=== PATIENT | female | born 1955 | race Caucasian/White ===

== ENCOUNTER 2017-08-04 11:44 | Emergency (ER) | payer BC ==
[2017-08-04] MEDS: Sodium Chloride 0.9% 1,000 ML IV SCH (12:14)
[2017-08-04] MEDS: levETIRAcetam 500 MG in Sodium Chloride 0.9% 100 ML IV ONE (12:28)
[2017-08-04] MEDS: cefTRIAXone 1,000 MG VIAL IVPUSH ONE (13:17)
[2017-08-04] MEDS: Sodium Chloride 0.9% 1,000 ML IV ONE (14:00)
--- NOTE | 2017-08-04 15:14 | CT ---
INDICATION: Weakness, CVA history, now seizures. CT HEAD WITHOUT CONTRAST: Serial contiguous 2.5 and 5 mm sections were obtained through the brain without contrast and had to be repeated for a total of 6 times due to seizures - motion artifact. Total exam DLP = 2,850.94 mGy-cm. Exam revealed similar appearance of a few opacified ethmoidal air cells of questionable significance, possibly relating to sinusitis in that area or retention cysts. There is some thickening of the lining of the posteromedial aspect of the wall lining of the right sphenoidal air cell. This could represent sinusitis in that area, as there is some frothiness to that apparent fluid and/or thickening. The mastoid air cells appear fairly well-aerated. Evidence of previous surgery is noted in the right temporal area with bone flap and metallic retention device. There is minimal calcification in the internal carotid arteries. Encephalomalacia is noted in the temporal lobe on the right and appears similar to the previous examination with suggestion of some progressive abnormal decreased density in the frontoparietal white matter on the right, compared with the previous study. This appearance may be either new or secondary to progression at the time of the previous incident - comparison study is 2016. Other previous study from 11/05/2014 also did not show this new area of decreased density in the frontal and parietal white matter periventricular. There is prominence of the right lateral ventricle, which is only minimally increased compared with the previous study of 2016, significantly increased compared with 2014, however. The midline is showing no shift. The ventricles are prominent, as previously noted, especially the right lateral ventricle. Orbits appear to be intact. IMPRESSION: 1. Encephalomalacia right temporoparietal area extending into the white matter but with new area of decreased density in the white matter compared with 2017, extending parietal and into the frontal area. This could represent an acute process. However, no bleeding site or hematoma was seen. 2. Postsurgical changes right frontoparietal with encephalomalacia and prominence of the right lateral ventricle. Report was called to Dr. Andrade at 1209 hours on 08/04/2017. [facility]ITAL[facility]
--- NOTE | 2017-08-04 15:17 | CR ---
INDICATION: Unresponsive. CHEST: A single AP upright view of the chest was obtained 08/04/2017 with an additional view to attempt better inspiration. Poor inspiration compared with 03/27/2011 examination is noted, emphasizing basilar markings without a definite active infiltrate or effusion. No definite evidence of CHF, cardiomegaly, or pneumothorax is identified. Tubing is noted overlying the left clavicle. Overlying EKG leads are also noted. IMPRESSION: No acute process, allowing for poor inspiration. MTDD
--- NOTE | 2017-08-04 15:19 | EDM.PDOC ---
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 , walks with a walker here, pt felt okay yesterday, did not feel this AM and did not eat much , had dysuria and he scheduled at appointment at the clinic at 4:30 PM today to evaluate at 10:00 pt seemed to be at baseline, ambulating, at 11:00 AM returned home and pt had slid forward in her chair and was unresponsive EMS called, 30 second seizures witnessed by EMS, no meds given pt given 500 mg Keppra IV here, no additional szs activity was staring with nonpurposeful movement of the R side did appear dry, IVF fluids given, lactic 6.3 and SG 1.030 with no ketones, dysuria likely d/t concentrated urine after 2 liters IVF pt was speaking, alert, BOB and back to baseline as per trop 0.088 initial, repeat pending initial EKG with ST 114 with PRWP and late transition repeat EKG pending HR 122 and regular on arrival, ST, decreased to <100 after 2 liters IVF - Related Data Allergies Allergy/AdvReac Type Severity Reaction Status Date / Time adhesive Allergy Mild Itching Verified 08/04/17 11:51 iopamidol Allergy Mild Difficulty Verified 08/04/17 11:51 Breathing aspirin Allergy Bleeding Verified 08/04/17 11:51 povidone-iodine Allergy Rash Verified 08/04/17 11:51 [From Betadine] soap [From Betadine] Allergy Rash Verified 08/04/17 11:51 zolmitriptan [From Zomig] Allergy Vomiting Verified 08/04/17 11:51 Home Meds: Home Meds Multivitamins/Minerals [Vitamins and Minerals] 1 tab PO DAILY #40 tablet [Rx] atorvaSTATin [Lipitor] 40 mg PO BEDTIME #40 tab 05/29/14 [Rx] Calcium Carbonate [Tums] 500 mg PO QID PRN 09/14/14 [History] Cholecalciferol (Vitamin D3) [Vitamin D3] 2,000 unit PO DAILY 09/14/14 [History] FLUoxetine [PROzac] 60 mg PO DAILY 09/14/14 [History] Calcium Carbonate/Vitamin D3 [Calcium 500-Vit D3 200 Tablet] 1 tab PO BIDMEALS 03/14/15 [History] Omeprazole 40 mg PO DAILY 03/14/15 [History] Ondansetron [Zofran ODT] 4 mg PO Q4H PRN 03/14/15 [History] Gabapentin [Neurontin] 900 mg PO TID 08/29/15 [History] traMADol [Ultram] 50 mg PO QID PRN 08/29/15 [History] Docusate Sodium 100 mg PO DAILY 08/04/17 [History] Lactulose 30 ml PO BID PRN 08/04/17 [History] Meclizine [Antivert] 25 mg PO Q4H PRN 08/04/17 [History] Metoclopramide [Reglan] 5 mg PO Q8H PRN 08/04/17 [History] Sucralfate [Carafate] 1 gm PO QID PRN 08/04/17 [History] carBAMazepine [Carbamazepine] 100 mg PO BID 08/04/17 [History] Past Medical History HEENT History: Reports: Head Other HEENT History: mechanical thrombectomy for stroke, stroke, brain edema to right temporal occipital area. 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 Drained in [place] Psychiatric History: Reports: Anxiety, Depression, Panic Attack Hematologic History: Reports: Blood Transfusion(s) Immunologic History: Reports: None Oncologic (Cancer) History: Reports: None Other Dermatologic History: NON HEALING ABD WOUND - Infectious Disease History Infectious Disease History: Reports: C-Difficile, Chicken Pox, Measles, Mumps - Past Surgical History Head Surgeries/Procedures: Reports: Craniotomy GI Surgical History: Reports: Appendectomy, Colonoscopy Female Surgical History: Reports: D&C, Hysterectomy, Oophorectomy Endocrine Surgical History: Reports: None Musculoskeletal Surgical History: Reports: Knee Replacement Oncologic Surgical History: Reports: None Dermatological Surgical History: Reports: Skin Graft Social & Family History - Family History HEENT: Reports: Cataract, Macular Degeneration Cardiac: Reports: High Cholesterol Respiratory: Reports: None GI: Reports: Cholelithiasis : Reports: Renal Calculus OBGYN: Reports: Musculoskeletal: Reports: Arthritis, Back pain, Chronic, Osteoporosis Neurological: Reports: Migraines Psychiatric: Reports: Anxiety Endocrine/Metabolic: Reports: Diabetes, type II Hematologic: Reports: None Immunologic: Reports: None Dermatologic: Reports: None Oncologic: Reports: Leukemia, Prostate - Tobacco Use Smoking Status *Q: Current Every Day Smoker Years of Tobacco use: 35 Packs/Tins Daily: 0.2 Used Tobacco, but Quit: No - Caffeine Use Caffeine Use: Reports: None - Recreational Drug Use Recreational Drug Use: No - Living Situation & Occupation Living situation: Reports: Occupation: Disabled ED ROS GENERAL - Review of Systems Review Of Systems: See Below Constitutional: Reports: No Symptoms HEENT: Reports: No Symptoms Respiratory: Reports: No Symptoms Cardiovascular: Reports: No Symptoms Endocrine: Reports: No Symptoms GI/Abdominal: Reports: No Symptoms : Reports: No Symptoms Musculoskeletal: Reports: No Symptoms Skin: Reports: No Symptoms Neurological: Reports: No Symptoms (unresponsive), Trouble Speaking, Weakness, Change in Speech, Other (slight PRYOR) Psychiatric: Reports: No Symptoms Hematologic/Lymphatic: Reports: No Symptoms Immunologic: Reports: No Symptoms ED EXAM, NEURO - Physical Exam Exam: See Below Exam Limited By: No Limitations General Appearance: WD/WN, Other (pt presented staring, conjugate, did have some movement together, 4/4 mm, equal reactive, did speak to me 1-2 word sentences, said she had a slight PRYOR) Eye Exam: Bilateral Eye: Other (EOMI after IVF) Ears: Normal External Exam, Hearing Grossly Normal Nose: Normal Inspection, Normal Mucosa, No Blood Throat/Mouth: Normal Inspection, Normal Lips, Normal Teeth, Normal Oropharynx, Normal Voice, No Airway Compromise Head Exam: Atraumatic, Normocephalic Neck: Normal Inspection, Supple, Non-Tender, Full Range of Motion Respiratory/Chest: No Respiratory Distress, Lungs Clear, Normal Breath Sounds, No Accessory Muscle Use, Chest Non-Tender Cardiovascular: Regular Rate, Rhythm, No Edema, No Gallop, No JVD, No Rub, Systolic Murmur GI/Abdominal: Normal Bowel Sounds, Soft, Non-Tender, No Distention Neurological: Other (began to move LUE/LLE after IVF, speaking in complete sentences "I want to go home", says she is feeling better, nonpurposeful movement on the R on arrival, appeared postictal) Extremities: Normal Inspection, Normal Range of Motion, Non-Tender, No Pedal Edema, Other (moderate dec'd turgor UE b/l, no tenting) Psychiatric: Normal Affect, Normal Mood Skin Exam: Warm, Dry, Intact, Normal Color, No Rash Course - Vital Signs Last Recorded V/S: Last Vital Signs Temp 36.9 C 08/04/17 11:50 Pulse 97 08/04/17 16:05 Resp 17 08/04/17 16:05 BP 115/57 L 08/04/17 16:05 Pulse Ox 97 08/04/17 16:05 - Orders/Labs/Meds Orders: Active Orders 24 hr Category Date Time Status EKG Documentation Completion [RC] ASDIRECTED Care 08/04/17 15:13 Active Insert Bonilla Catheter [Insert Urinary Catheter] [OM.PC] Care 08/04/17 12:15 Ordered Q24H Urinary Catheter Assessment [RC] QSHIFT Care 08/04/17 12:15 Active CULTURE BLOOD [BC] Urgent Lab 08/04/17 12:45 Results CULTURE BLOOD [BC] Urgent Lab 08/04/17 13:15 Received URINALYSIS W/MICROSCOPIC [UA W/MICROSCOPIC] [URIN] Stat Lab 08/04/17 13:06 Ordered Sodium Chloride 0.9% [Normal Saline] 1,000 ml Med 08/04/17 12:15 Active IV ASDIRECTED Blood Culture x2 Reflex Set [OM.PC] Urgent Oth 08/04/17 12:03 Ordered EKG 12 Lead [EK] Routine Ther 08/04/17 12:03 Ordered EKG 12 Lead [EK] Routine Ther 08/04/17 15:12 Ordered Medication Orders Sodium Chloride (Normal Saline) 1,000 mls @ 999 mls/hr IV ASDIRECTED TREVOR Last Admin: 08/04/17 12:14 Dose: 999 mls/hr Labs: Laboratory Tests 08/04/17 08/04/17 08/04/17 Range/Units 12:45 12:45 12:45 WBC 20.7 H (4.5-12.0) X10-3/uL RBC 4.67 (3.23-5.20) x10(6)uL Hgb 14.7 (11.5-15.5) g/dL Hct 44.0 (30.0-51.3) % MCV 94.2 (80-96) fL MCH 31.4 (27.7-33.6) pg MCHC 33.4 (32.2-35.4) g/dL RDW 13.1 (11.5-15.5) % Plt Count 271 (125-369) X10(3)uL MPV 9.4 (7.4-10.4) fL Add Manual Diff Yes Neutrophils % (Manual) 88 H (46-82) % Lymphocytes % (Manual) 9 L (13-37) % Monocytes % (Manual) 3 L (4-12) % Sodium 141 (135-145) mmol/L Potassium 4.0 (3.5-5.3) mmol/L Chloride 104 (100-110) mmol/L Carbon Dioxide 18 L (21-32) mmol/L BUN 20 H (7-18) mg/dL Creatinine 1.1 H (0.55-1.02) mg/dL Est Cr Clr Drug Dosing 43.87 mL/min Estimated GFR (MDRD) 50 L (>60) BUN/Creatinine Ratio 18.2 (9-20) Glucose 142 H (80-116) mg/dL Lactic Acid (0.4-2.2) mmol/L Calcium 8.5 L (8.6-10.2) mg/dL Total Bilirubin 0.1 (0.1-1.3) mg/dL AST 21 (5-25) IU/L ALT 27 (12-36) U/L Alkaline Phosphatase 116 H (56-112) IU/L Troponin I 0.088 H* (<0.017-0.056) ng/mL C-Reactive Protein 0.5 (0.5-0.9) mg/dL NT-Pro-B Natriuret Pep (<=125) pg/mL Total Protein 7.2 (6.0-8.0) g/dL Albumin 3.7 (3.2-4.6) g/dL Globulin 3.5 g/dL Albumin/Globulin Ratio 1.1 Urine Color (YELLOW) Urine Appearance (CLEAR) Urine pH (5.0-6.5) Ur Specific [place] (1.010-1.025) Urine Protein (NEGATIVE) mg/dL Urine Glucose (UA) (NEGATIVE) mg/dL Urine Ketones (NEGATIVE) mg/dL Urine Occult Blood (NEGATIVE) Urine Nitrite (NEGATIVE) Urine Bilirubin (NEGATIVE) Urine Urobilinogen (NEGATIVE) mg/dL Ur Leukocyte Esterase (NEGATIVE) Urine WBC (0) Ur Squamous Epith Cells (NS,R,O) Urine Bacteria (NS) 08/04/17 08/04/17 08/04/17 Range/Units 13:06 13:15 15:20 WBC (4.5-12.0) X10-3/uL RBC (3.23-5.20) x10(6)uL Hgb (11.5-15.5) g/dL Hct (30.0-51.3) % MCV (80-96) fL MCH (27.7-33.6) pg MCHC (32.2-35.4) g/dL RDW (11.5-15.5) % Plt Count (125-369) X10(3)uL MPV (7.4-10.4) fL Add Manual Diff Neutrophils % (Manual) (46-82) % Lymphocytes % (Manual) (13-37) % Monocytes % (Manual) (4-12) % Sodium (135-145) mmol/L Potassium (3.5-5.3) mmol/L Chloride (100-110) mmol/L Carbon Dioxide (21-32) mmol/L BUN (7-18) mg/dL Creatinine (0.55-1.02) mg/dL Est Cr Clr Drug Dosing mL/min Estimated GFR (MDRD) (>60) BUN/Creatinine Ratio (9-20) Glucose (80-116) mg/dL Lactic Acid 6.3 H* (0.4-2.2) mmol/L Calcium (8.6-10.2) mg/dL Total Bilirubin (0.1-1.3) mg/dL AST (5-25) IU/L ALT (12-36) U/L Alkaline Phosphatase (56-112) IU/L Troponin I 0.212 H* (<0.017-0.056) ng/mL C-Reactive Protein (0.5-0.9) mg/dL NT-Pro-B Natriuret Pep (<=125) pg/mL Total Protein (6.0-8.0) g/dL Albumin (3.2-4.6) g/dL Globulin g/dL Albumin/Globulin Ratio Urine Color Yellow (YELLOW) Urine Appearance Clear (CLEAR) Urine pH 5.0 (5.0-6.5) Ur Specific [place] 1.030 H (1.010-1.025) Urine Protein Negative (NEGATIVE) mg/dL Urine Glucose (UA) Normal (NEGATIVE) mg/dL Urine Ketones Negative (NEGATIVE) mg/dL Urine Occult Blood Negative (NEGATIVE) Urine Nitrite Negative (NEGATIVE) Urine Bilirubin Negative (NEGATIVE) Urine Urobilinogen Normal (NEGATIVE) mg/dL Ur Leukocyte Esterase Negative (NEGATIVE) Urine WBC 0-5 (0) Ur Squamous Epith Cells Occasional (NS,R,O) Urine Bacteria Few H (NS) 18 08/04/17 Range/Units 15:20 15:20 WBC (4.5-12.0) X10-3/uL RBC (3.23-5.20) x10(6)uL Hgb (11.5-15.5) g/dL Hct (30.0-51.3) % MCV (80-96) fL MCH (27.7-33.6) pg MCHC (32.2-35.4) g/dL RDW (11.5-15.5) % Plt Count (125-369) X10(3)uL MPV (7.4-10.4) fL Add Manual Diff Neutrophils % (Manual) (46-82) % Lymphocytes % (Manual) (13-37) % Monocytes % (Manual) (4-12) % Sodium (135-145) mmol/L Potassium (3.5-5.3) mmol/L Chloride (100-110) mmol/L Carbon Dioxide (21-32) mmol/L BUN (7-18) mg/dL Creatinine (0.55-1.02) mg/dL Est Cr Clr Drug Dosing mL/min Estimated GFR (MDRD) (>60) BUN/Creatinine Ratio (9-20) Glucose (80-116) mg/dL Lactic Acid 1.6 (0.4-2.2) mmol/L Calcium (8.6-10.2) mg/dL Total Bilirubin (0.1-1.3) mg/dL AST (5-25) IU/L ALT (12-36) U/L Alkaline Phosphatase (56-112) IU/L Troponin I (<0.017-0.056) ng/mL C-Reactive Protein (0.5-0.9) mg/dL NT-Pro-B Natriuret Pep 142 H (<=125) pg/mL Total Protein (6.0-8.0) g/dL Albumin (3.2-4.6) g/dL Globulin g/dL Albumin/Globulin Ratio Urine Color (YELLOW) Urine Appearance (CLEAR) Urine pH (5.0-6.5) Ur Specific [place] (1.010-1.025) Urine Protein (NEGATIVE) mg/dL Urine Glucose (UA) (NEGATIVE) mg/dL Urine Ketones (NEGATIVE) mg/dL Urine Occult Blood (NEGATIVE) Urine Nitrite (NEGATIVE) Urine Bilirubin (NEGATIVE) Urine Urobilinogen (NEGATIVE) mg/dL Ur Leukocyte Esterase (NEGATIVE) Urine WBC (0) Ur Squamous Epith Cells (NS,R,O) Urine Bacteria (NS) Meds: Medications Generic Name Dose Route Start Last Admin Trade Name Freq PRN Reason Stop Dose Admin Sodium Chloride 1,000 mls @ 999 mls/hr 08/04/17 12:15 08/04/17 12:14 Normal Saline IV 999 mls/hr ASDIRECTED TREVOR Administration Discontinued Medications Generic Name Dose Route Start Last Admin Trade Name Freq PRN Reason Stop Dose Admin Acetaminophen 1,000 mg 08/04/17 15:20 08/04/17 15:32 Tylenol Extra Strength PO 08/04/17 15:21 1,000 mg ONETIME ONE Administration Ceftriaxone Sodium 1,000 mg 08/04/17 12:13 08/04/17 13:17 Rocephin IVPUSH 08/04/17 12:14 1,000 mg ONETIME ONE Administration Levetiracetam 500 mg/ Sodium 105 mls @ 400 mls/hr 08/04/17 12:12 08/04/17 12: 28 Chloride IV 08/04/17 12:26 400 mls/hr ONETIME ONE Administration Sodium Chloride 1,000 mls @ 999 mls/hr 08/04/17 13:56 08/04/17 14:00 Normal Saline IV 08/04/17 14:56 999 mls/hr .BOLUS ONE Administration - Re-Assessments/Exams Free Text/Narrative Re-Assessment/Exam: 08/04/17 16:14 pt stabilized, requested transfer to [facility] as required by his insurance, he would have to pay the 1st 15k if pt admitted here pt feeling much better, back to baseline, talking, BOB, saying she wants to go home but agrees to be admitted CxR, 1 view, with poor inspiration, no infiltrate as per radiology head CT without, old R MCA stroke, no acute changes EKG with ST 114 initial, repeat SR [address] change at V2 & V3, appears to be developing new T wave in V@ altho could be lead placement, has 0.[address] depression in V2 & V3, new stickers were placed on chest for 2nd EKG trop 0.088 with repeat 0.2, possibly CV stress altho pt may have a L main or LAD lesion to account for ST changes, no prior h/o TN pt had been on warfarin for DVT after knee surgery, not on warfarin however when she had her hemorrhagic CVA 3y ago lactic acid 6.3 initial now corrected to 1.7 WBC 20.7 and may be stress related, no clinical evidence of infection (u/a and CxR neg) nevertheless, BC x 2 pending and pt given ceftriaxone 1 gm IV pt with known new onset seizure witnessed by EMS and likely had another unwitnessed seizure at home, was postictal on arrival here seizure seemed precipitated by prior CVA and dehydration likely has had a small TN as a secondary event after the seizure altho pt may have a primary cardiac event called placed to [facility], waiting call back to complete transfer Free Text/Narrative Re-Assessment/Exam: 08/04/17 16:[address] Sexton in transfer, Dr Dick remembers the pt from taking care of her when she had her CVA previously Departure - Departure Time of Disposition: 16:33 Disposition: DC/Tfer to Acute Hospital 02 Condition: Good Clinical Impression: New onset seizure, Postictal state, Moderate dehydration, Lactic acidosis, Elevated troponin level, NSTEMI (non-ST elevated myocardial infarction), Anterior wall myocardial infarction, Acute prerenal azotemia, Leukocytosis - Discharge Information Referrals: Oriana Webb PA [Primary Care Provider] - Forms: ED Department Discharge - My Orders Last 24 Hours: My Active Orders 08/04/17 12:03 Blood Culture x2 Reflex Set [OM.PC] Urgent EKG 12 Lead [EK] Routine 08/04/17 12:15 Insert Bonilla Catheter [Insert Urinary Catheter] [OM.PC] Q24H Urinary Catheter Assessment [RC] QSHIFT Sodium Chloride 0.9% [Normal Saline] 1,000 ml IV ASDIRECTED 08/04/17 12:45 CULTURE BLOOD [BC] Urgent 08/04/17 13:06 URINALYSIS W/MICROSCOPIC [UA W/MICROSCOPIC] [URIN] Stat 08/04/17 13:15 CULTURE BLOOD [BC] Urgent 08/04/17 15:12 EKG 12 Lead [EK] Routine 08/04/17 15:13 EKG Documentation Completion [RC] ASDIRECTED - Assessment/Plan Last 24 Hours: My Active Orders 08/04/17 12:03 Blood Culture x2 Reflex Set [OM.PC] Urgent EKG 12 Lead [EK] Routine 08/04/17 12:15 Insert Bonilla Catheter [Insert Urinary Catheter] [OM.PC] Q24H Urinary Catheter Assessment [RC] QSHIFT Sodium Chloride 0.9% [Normal Saline] 1,000 ml IV ASDIRECTED 08/04/17 12:45 CULTURE BLOOD [BC] Urgent 08/04/17 13:06 URINALYSIS W/MICROSCOPIC [UA W/MICROSCOPIC] [URIN] Stat 08/04/17 13:15 CULTURE BLOOD [BC] Urgent 08/04/17 15:12 EKG 12 Lead [EK] Routine 08/04/17 15:13 EKG Documentation Completion [RC] ASDIRECTED
[2017-08-04] MEDS: Acetaminophen 500 MG Tab PO ONE (15:32)
[2017-08-04 18:02] VITALS: BP 118/62
== END 2017-08-04 17:50 ==
LOC: FB.ED 11:44
DX: I21.4 Non-ST elevation (NSTEMI) myocardial infarction (principal); R56.9 Unspecified convulsions; D72.829 Elevated white blood cell count, unspecified; E86.0 Dehydration; E87.2 Acidosis; R79.89 Other specified abnormal findings of blood chemistry; K21.9 Gastro-esophageal reflux disease without esophagitis; E78.00 Pure hypercholesterolemia, unspecified; F17.210 Nicotine dependence, cigarettes, uncomplicated; Z88.8 Allergy status to other drugs, medicaments and biological substances; Z88.6 Allergy status to analgesic agent; Z91.048 Other nonmedicinal substance allergy status; Z79.899 Other long term (current) drug therapy
CPT/HCPCS: 36415; 51702; 70450; 71045; 80053; 81001; 83605; 83880; 84484; 85025; 86140; 87040; 93005; 96361; 96365; 96375; 99285; A9270-GY; J0696; J1953; J7030

== ENCOUNTER 2020-03-08 08:58 | Emergency (ER) | payer BC ==
--- NOTE | 2020-03-08 09:20 | EDM.PDOC ---
ED HPI GENERAL MEDICAL PROBLEM - General Stated Complaint: CHEST PAIN Time Seen by Provider: 03/08/20 09:12 Source of Information: Reports: Patient History Limitations: Reports: No Limitations - History of Present Illness INITIAL COMMENTS - FREE TEXT/NARRATIVE: 64-year-old female who reports onset of burning in her central chest beginning about 8 AM while she was sitting and watching TV. It did not radiate to her arm or back but she did report that it felt like there was some burning into her throat at times. There is no nausea or vomiting. There was diaphoresis associated with this. She has taken Tagamet and Gaviscon without any relief of her symptoms. She reports that the pain is about a 7/10 at present. It was a little worse earlier. Nothing really seems to have brought the discomfort on. Ilana landeros has not had discomfort like this before. She states that she felt well yesterday. No difficulty breathing. No fevers or chills. No cough. No sore throat. There are no other associated signs or symptoms. There are no other modifying factors. Onset: Today (8 AM) Duration: Constant, Improving Location: Reports: Chest Quality: Reports: Burning Severity: Moderate Improves with: Reports: None Worsens with: Reports: None Context: Reports: Other (Nothing.) Associated Symptoms: Reports: No Other Symptoms (Except as above.) Treatments GRAIN INSPECTOR: Reports: Other Medication(s) (Tagamet and Gaviscon) Epigastric region Pain Score (Numeric/FACES): 7 - Related Data Allergies Allergy/AdvReac Type Severity Reaction Status Date / Time adhesive Allergy Mild Itching Verified 08/04/17 11:51 iopamidol Allergy Mild Difficulty Verified 08/04/17 11:51 Breathing aspirin Allergy Bleeding Verified 08/04/17 11:51 povidone-iodine Allergy Rash Verified 08/04/17 11:51 [From Betadine] soap [From Betadine] Allergy Rash Verified 08/04/17 11:51 zolmitriptan [From Zomig] Allergy Vomiting Verified 08/04/17 11:51 Home Meds: Home Meds Multivitamins/Minerals [Vitamins and Minerals] 1 tab PO DAILY #40 tablet 05/29/14 [Rx] atorvaSTATin [Lipitor] 40 mg PO BEDTIME #40 tab 05/29/14 [Rx] Calcium Carbonate [Tums] 500 mg PO QID PRN 09/14/14 [History] Cholecalciferol (Vitamin D3) [Vitamin D3] 2,000 unit PO DAILY 09/14/14 [History] FLUoxetine [PROzac] 60 mg PO DAILY 09/14/14 [History] Calcium Carbonate/Vitamin D3 [Calcium 500-Vit D3 200 Tablet] 1 tab PO BIDMEALS 03/14/15 [History] Omeprazole 40 mg PO DAILY 03/14/15 [History] Ondansetron [Zofran ODT] 4 mg PO Q4H PRN 03/14/15 [History] Gabapentin [Neurontin] 900 mg PO TID 08/29/15 [History] traMADol [Ultram] 50 mg PO QID PRN 08/29/15 [History] Docusate Sodium 100 mg PO DAILY 08/04/17 [History] Lactulose 30 ml PO BID PRN 08/04/17 [History] Meclizine [Antivert] 25 mg PO Q4H PRN 08/04/17 [History] Metoclopramide [Reglan] 5 mg PO Q8H PRN 08/04/17 [History] Sucralfate [Carafate] 1 gm PO QID PRN 08/04/17 [History] carBAMazepine [Carbamazepine] 100 mg PO BID 08/04/17 [History] Past Medical History Cardiovascular History: Reports: Blood Clots/VTE/DVT, High Cholesterol Respiratory History: Reports: Intubation, Previous Other Respiratory History: filters on each lung for blood clots pt reports Gastrointestinal History: Reports: Diverticulosis, GERD, Hemorrhoids, Irritable Bowel Syndrome, Other (See Below) (Microscopic colitis) Musculoskeletal History: Reports: Back Pain, Chronic, Neck Pain, Chronic Other Musculoskeletal History: Weakness Neurological History: Reports: CVA, Headaches, Chronic, Migraines, Vertigo Other Neuro History: bleeding in brain back in June. Drained in [facility] Psychiatric History: Reports: Anxiety, Depression, Panic Attack Hematologic History: Reports: Blood Transfusion(s) - Infectious Disease History Infectious Disease History: Reports: C-Difficile, Chicken Pox, Measles, Mumps - Past Surgical History Head Surgeries/Procedures: Reports: Craniotomy GI Surgical History: Reports: Appendectomy, Colonoscopy Female Surgical History: Reports: D&C, Hysterectomy, Oophorectomy Musculoskeletal Surgical History: Reports: Knee Replacement Dermatological Surgical History: Reports: Skin Graft Social & Family History - Family History HEENT: Reports: Cataract, Macular Degeneration Cardiac: Reports: High Cholesterol Respiratory: Reports: None GI: Reports: Cholelithiasis : Reports: Renal Calculus OBGYN: Reports: Musculoskeletal: Reports: Arthritis, Back pain, Chronic, Osteoporosis Neurological: Reports: Migraines Psychiatric: Reports: Anxiety Endocrine/Metabolic: Reports: Diabetes, type II Hematologic: Reports: None Immunologic: Reports: None Dermatologic: Reports: None Oncologic: Reports: Leukemia, Prostate - Tobacco Use Tobacco Use Status *Q: Former Tobacco User (Quit in September 2018) - Caffeine Use Caffeine Use: Reports: None - Alcohol Use Alcohol Use History: No - Living Situation & Occupation Living situation: Reports: Occupation: Disabled ED ROS GENERAL - Review of Systems Review Of Systems: See Below Constitutional: Reports: No Symptoms HEENT: Reports: No Symptoms Respiratory: Reports: No Symptoms Cardiovascular: Reports: Chest Pain Endocrine: Reports: No Symptoms GI/Abdominal: Reports: No Symptoms : Reports: No Symptoms Musculoskeletal: Reports: No Symptoms Skin: Reports: Diaphoresis (Associated with this episode this morning but has resolved now.) Neurological: Reports: No Symptoms Psychiatric: Reports: No Symptoms Hematologic/Lymphatic: Reports: No Symptoms Immunologic: Reports: No Symptoms ED EXAM, GENERAL - Physical Exam Exam: See Below Exam Limited By: No Limitations General Appearance: Alert, WD/WN, No Apparent Distress Eye Exam: Bilateral Eye: EOMI, Normal Inspection, PERRL Ears: Normal External Exam, Hearing Grossly Normal Ear Exam: Bilateral Ear: Auricle Normal Nose: Normal Inspection, Normal Mucosa, No Blood Throat/Mouth: Normal Inspection, Normal Oropharynx, Normal Voice, No Airway Compromise Head: Atraumatic, Normocephalic Neck: Normal Inspection, Supple, Non-Tender, Full Range of Motion Respiratory/Chest: No Respiratory Distress, Lungs Clear, Normal Breath Sounds, No Accessory Muscle Use, Chest Non-Tender Cardiovascular: Normal Peripheral Pulses, Regular Rate, Rhythm, No Murmur Peripheral Pulses: 2+: Radial (L), Radial (R) GI/Abdominal: Normal Bowel Sounds, Soft Back Exam: Normal Inspection, Full Range of Motion Extremities: Normal Inspection, Normal Range of Motion, Non-Tender, No Pedal Edema, Normal Capillary Refill Neurological: Alert, Oriented, CN II-XII Intact, Other (Left-sided weakness and she is chronic.) Psychiatric: Flat Affect Skin Exam: Warm, Dry, Intact, Normal Color, No Rash #1 Interpretation EKG Date: 03/08/20 Time: 09:01 Rhythm: NSR Rate (Beats/Min): 88 [place]: LAD-Left [place] Deviation P-Wave: Present QRS: Normal ST-T: Depressed (And inverted in V1 through V3.) QT: Normal Comparison: No Change (From an EKG performed on 08/04/2017.) #2 Interpretation EKG Date: 03/08/20 Time: 11:21 Rhythm: NSR Rate (Beats/Min): 85 [place]: LAD-Left [place] Deviation P-Wave: Present QRS: Normal ST-T: Depressed (V1 through V3) QT: Normal Comparison: No Change (No change from EKG performed earlier today at 9 AM.) Course - Vital Signs Last Recorded V/S: Last Vital Signs Temp 36.4 C 03/08/20 08:58 Pulse 88 03/08/20 08:58 Resp 20 03/08/20 08:58 BP 135/54 L 03/08/20 11:45 Pulse Ox 95 03/08/20 08:58 - Orders/Labs/Meds Orders: Active Orders 24 hr Category Date Time Status EKG Documentation Completion [RC] ASDIRECTED Care 03/08/20 09:38 Active EKG Documentation Completion [RC] ASDIRECTED Care 03/08/20 11:11 Active Nitroglycerin [Nitrostat] Med 03/08/20 09:38 Active 0.4 mg SL Q5M PRN Sodium Chloride 0.9% [Normal Saline] 1,000 ml Med 03/08/20 10:15 Active IV ASDIRECTED Sodium Chloride 0.9% [Saline Flush] Med 03/08/20 09:37 Active 10 ml FLUSH ASDIRECTED PRN Peripheral IV Insertion Adult [OM.PC] Routine Oth 03/08/20 09:37 Ordered EKG 12 Lead [EK] Routine Ther 03/08/20 09:37 Ordered EKG 12 Lead [EK] Routine Ther 03/08/20 11:10 Ordered Medication Orders Sodium Chloride (Normal Saline) 1,000 mls @ 100 mls/hr IV ASDIRECTED TREVOR Last Admin: 03/08/20 10:50 Dose: 100 mls/hr Documented by: MOELWEN Nitroglycerin (Nitrostat) 0.4 mg SL Q5M PRN PRN Reason: Chest Pain Last Admin: 03/08/20 11:45 Dose: 0.4 mg Documented by: CAROL Sodium Chloride (Saline Flush) 10 ml FLUSH ASDIRECTED PRN PRN Reason: Keep Vein Open Last Admin: 03/08/20 10:50 Dose: 10 ml Documented by: CAROL Labs: Laboratory Tests 03/08/20 03/08/20 03/08/20 Range/Units 09:05 09:05 09:05 WBC 7.6 (3.0-10.3) x10-3/uL RBC 4.64 (3.60-5.20) x10(6)uL Hgb 13.9 (11.4-15.5) g/dL Hct 42.1 (34.2-48.2) % MCV 90.8 (76.7-100.5) fL MCH 30.1 (23.9-33.9) pg MCHC 33.1 (31.9-34.8) g/dL RDW 14.1 (12.3-16.5) % Plt Count 307 (151-488) x10(3)uL MPV 9.3 (7.1-12.4) fL Neut % (Auto) 67.2 (30.8-76.2) % Lymph % (Auto) 19.2 (18.4-52.1) % [place] % (Auto) 10.2 (4.4-15.7) % Eos % (Auto) 2.8 (0.6-8.1) % Baso % (Auto) 0.6 (0.2-1.5) % Neut # (Auto) 5.1 (1.5-6.3) x10-3/uL Lymph # (Auto) 1.5 (1.0-4.4) x10-3/uL [place] # (Auto) 0.8 (0.3-1.0) x10-3/uL Eos # (Auto) 0.2 (0.0-0.8) x10-3/uL Baso # (Auto) 0.0 (0.0-0.1) x10-3/uL PT 10.2 (9.0-11.1) sec INR 0.94 L (1.00-1.24) APTT 22.6 L (24.4-33.2) SECONDS D-Dimer, Quantitative (0.0-0.59) mg/LFEU Sodium 140 (135-145) mmol/L Potassium 4.0 (3.5-5.3) mmol/L Chloride 102 (100-110) mmol/L Carbon Dioxide 25 (21-32) mmol/L BUN 16 (7-18) mg/dL Creatinine 0.8 (0.55-1.02) mg/dL Est Cr Clr Drug Dosing TNP Estimated GFR (MDRD) > 60 (>60) BUN/Creatinine Ratio 20.0 (9-20) Glucose 91 (80-116) mg/dL Calcium 8.7 (8.6-10.2) mg/dL Magnesium 1.9 (1.8-2.5) mg/dL Total Bilirubin 0.2 (0.1-1.3) mg/dL AST 14 D (5-25) IU/L ALT 20 D (12-36) U/L Alkaline Phosphatase 164 H (56-112) IU/L Troponin I (4.0-60.3) pg/mL Total Protein 7.2 (6.0-8.0) g/dL Albumin 3.6 (3.2-4.6) g/dL Globulin 3.6 g/dL Albumin/Globulin Ratio 1.0 Carbamazepine 11.0 (<0.5) ug/mL 03/08/20 03/08/20 03/08/20 Range/Units 09:05 09:05 11:45 WBC (3.0-10.3) x10-3/uL RBC (3.60-5.20) x10(6)uL Hgb (11.4-15.5) g/dL Hct (34.2-48.2) % MCV (76.7-100.5) fL MCH (23.9-33.9) pg MCHC (31.9-34.8) g/dL RDW (12.3-16.5) % Plt Count (151-488) x10(3)uL MPV (7.1-12.4) fL Neut % (Auto) (30.8-76.2) % Lymph % (Auto) (18.4-52.1) % [place] % (Auto) (4.4-15.7) % Eos % (Auto) (0.6-8.1) % Baso % (Auto) (0.2-1.5) % Neut # (Auto) (1.5-6.3) x10-3/uL Lymph # (Auto) (1.0-4.4) x10-3/uL [place] # (Auto) (0.3-1.0) x10-3/uL Eos # (Auto) (0.0-0.8) x10-3/uL Baso # (Auto) (0.0-0.1) x10-3/uL PT (9.0-11.1) sec INR (1.00-1.24) APTT (24.4-33.2) SECONDS D-Dimer, Quantitative 0.44 (0.0-0.59) mg/LFEU Sodium (135-145) mmol/L Potassium (3.5-5.3) mmol/L Chloride (100-110) mmol/L Carbon Dioxide (21-32) mmol/L BUN (7-18) mg/dL Creatinine (0.55-1.02) mg/dL Est Cr Clr Drug Dosing Estimated GFR (MDRD) (>60) BUN/Creatinine Ratio (9-20) Glucose (80-116) mg/dL Calcium (8.6-10.2) mg/dL Magnesium (1.8-2.5) mg/dL Total Bilirubin (0.1-1.3) mg/dL AST (5-25) IU/L ALT (12-36) U/L Alkaline Phosphatase (56-112) IU/L Troponin I < 4.0 L < 4.0 L (4.0-60.3) pg/mL Total Protein (6.0-8.0) g/dL Albumin (3.2-4.6) g/dL Globulin g/dL Albumin/Globulin Ratio Carbamazepine (<0.5) ug/mL Meds: Medications Generic Name Dose Route Start Last Admin Trade Name Freq PRN Reason Stop Dose Admin Sodium Chloride 1,000 mls @ 100 mls/hr 03/08/20 10:15 03/08/20 10:50 Normal Saline IV 100 mls/hr ASDIRECTED TREVOR Administration Nitroglycerin 0.4 mg 03/08/20 09:38 03/08/20 11:45 Nitrostat SL 0.4 mg Q5M PRN Administration Chest Pain Sodium Chloride 10 ml 03/08/20 09:37 03/08/20 10:50 Saline Flush FLUSH 10 ml ASDIRECTED PRN Administration Keep Vein Open Discontinued Medications Generic Name Dose Route Start Last Admin Trade Name Jimy PRN Reason Stop Dose Admin Ketorolac Tromethamine 30 mg 03/08/20 12:17 Toradol IVPUSH 03/08/20 12:18 ONETIME ONE Metoclopramide HCl 10 mg 03/08/20 11:11 03/08/20 11:25 Reglan IVPUSH 03/08/20 11:12 10 mg ONETIME ONE Administration - Radiology Interpretation Free Text/Narrative:: Portable chest x-ray showed no definite acute abnormality per the radiologist. - Re-Assessments/Exams Free Text/Narrative Re-Assessment/Exam: 03/08/20 11:10: The patient continues with chest pain. It was made somewhat better after the nitroglycerin. The pain was down to about a 4/10. She now has a headache after the nitroglycerin. She has no neck or jaw pain. I will plan on repeating her troponin and will also order a d-dimer. I will also repeat her EKG . In addition, I will give the patient Reglan 10 mg IV. 03/08/20 11:30: Repeat EKG was unchanged from previous. Her pain is completely gone and her chest after the Reglan. She still has the headache. Am awaiting the results for the repeat troponin and for the d-dimer. 03/08/20 12:35: The patient's repeat troponin was normal. The d-dimer was normal. She still is chest pain-free. She still has a headache. I have ordered Toradol 30 mg IV to be given as she has had this in the past her headache with good results. With the repeat troponin that was normal, repeat EKG which is completely unchanged and a negative d-dimer, I feel that MN has been ruled out and PE has been ruled out as well. Her symptoms are consistent with esophageal spasm/esophagitis/acid reflux and I am going to have the patient increase her Prilosec to 40 mg twice daily. She is to see her operations supervisor 2nd shift on 03/14/2020 and she can address these symptoms with him. I discussed all this with the patient and with her and they are in agreement with the plan for discharge. Departure - Departure Time of Disposition: 12:55 Disposition: Home, Self-Care 01 Condition: Good Clinical Impression: Esophageal spasm Chest pain Qualifiers: Chest pain type: unspecified Qualified Code(s): R07.9 - Chest pain, unspecified GERD (gastroesophageal reflux disease) Qualifiers: Esophagitis presence: esophagitis presence not specified Qualified Code(s): K21.9 - Gastro-esophageal reflux disease without esophagitis Instructions: Esophageal Spasm, Nonspecific Chest Pain, Adult, [id number], Gastroesophageal Reflux Disease, Adult, [id number] Referrals: Oriana Webb PA [Primary Care Provider] - Additional Instructions: Your blood tests were all reassuringly normal. Your EKG was not change from previous and we repeated the EKG and it again was unchanged. It did not show any evidence of a heart attack. Your blood tests were all reassuringly normal. Your blood clot screening test was negative and your repeat heart enzyme was negative as well. You appear to have related to your esophagus and possibly due to acid reflux. You need to increase your Prilosec/omeprazole to 40 mg twice daily instead of just once daily for now. Keep your follow-up appointment with the operations supervisor 2nd shift on 03/14/2020. Back to the emergency department for marked increase in pain, trouble breathing, severe weakness or any other concerning sign or symptom. Sepsis Event Note (ED) - Focused Exam Vital Signs: Vital Signs Temp Pulse Resp BP BP Pulse Ox 03/08/20 11:45 135/54 L 03/08/20 08:58 36.4 C 88 20 148/45 H 95 - My Orders Last 24 Hours: My Active Orders 03/08/20 09:37 Sodium Chloride 0.9% [Saline Flush] 10 ml FLUSH ASDIRECTED PRN Peripheral IV Insertion Adult [OM.PC] Routine EKG 12 Lead [EK] Routine 03/08/20 09:38 EKG Documentation Completion [RC] ASDIRECTED Nitroglycerin [Nitrostat] 0.4 mg SL Q5M PRN 03/08/20 10:15 Sodium Chloride 0.9% [Normal Saline] 1,000 ml IV ASDIRECTED 03/08/20 11:10 EKG 12 Lead [EK] Routine 03/08/20 11:11 EKG Documentation Completion [RC] ASDIRECTED - Assessment/Plan Last 24 Hours: My Active Orders 03/08/20 09:37 Sodium Chloride 0.9% [Saline Flush] 10 ml FLUSH ASDIRECTED PRN Peripheral IV Insertion Adult [OM.PC] Routine EKG 12 Lead [EK] Routine 03/08/20 09:38 EKG Documentation Completion [RC] ASDIRECTED Nitroglycerin [Nitrostat] 0.4 mg SL Q5M PRN 03/08/20 10:15 Sodium Chloride 0.9% [Normal Saline] 1,000 ml IV ASDIRECTED 03/08/20 11:10 EKG 12 Lead [EK] Routine 03/08/20 11:11 EKG Documentation Completion [RC] ASDIRECTED
--- NOTE | 2020-03-08 10:43 | CR ---
INDICATION: Chest pain. CHEST, ONE VIEW: Portable AP upright view of the chest was obtained 03/08/20 and compared with 08/04/17 and 03/27/11. Poor inspiration emphasizes markings. Overlying EKG leads are noted. Heart size is difficult to evaluate and may be slightly enlarged. It is emphasized by AP positioning and poor inspiration, however. Calcification is noted in the arch of the aorta. Linear densities at the mid to lower lung field on the left likely represent fibrosis - present in 2018. It could also represent recurrent linear atelectasis. A definite active infiltrate or effusion was not identified. Exogenous obesity is noted. Full inspiration PA and lateral views of the chest are recommended when clinically possible for better evaluation of heart size and lung bases. IMPRESSION: 1. No definite acute process - poor inspiration emphasizes heart and basilar markings. 2. Probable ASHD. 3. Exogenous obesity. 4. Probable fibrotic changes at the mid to lower lung field on the left. MTDD
[2020-03-08] MEDS: Sodium Chloride 0.9% 1,000 ML IV SCH (10:50)
[2020-03-08] MEDS: Sodium Chloride 0.9% 10 ML Syringe FLUSH PRN (10:50)
[2020-03-08] MEDS: Metoclopramide 10 MG/2 ML SDV IVPUSH ONE (11:25)
[2020-03-08] MEDS: Nitroglycerin 0.4 MG Tab.SL SL PRN (11:45)
[2020-03-08] MEDS: Ketorolac 30 MG/ML SDV IVPUSH ONE (12:38)
[2020-03-08 15:40] VITALS: BP 113/48
[2020-03-08 15:41] VITALS: PULSE 82
== END 2020-03-08 13:25 | disposition home or self-care (01) ==
LOC: FB.ED 08:58
DX: K21.9 Gastro-esophageal reflux disease without esophagitis (principal); K22.4 Dyskinesia of esophagus; E78.00 Pure hypercholesterolemia, unspecified; Z91.048 Other nonmedicinal substance allergy status; Z88.8 Allergy status to other drugs, medicaments and biological substances; Z88.6 Allergy status to analgesic agent; Z86.73 Personal history of transient ischemic attack (TIA), and cerebral infarction without residual deficits; Z79.899 Other long term (current) drug therapy; Z87.891 Personal history of nicotine dependence
CPT/HCPCS: 36415; 71045; 80053; 80156; 83735; 84484; 85025; 85379; 85610; 85730; 93005; 96374; 96375; 99285; A9270; J1885; J2765; J7030; 93010

== ENCOUNTER 2020-03-26 14:19 | Inpatient (IN) | payer MEDICARE, BC ==
[2020-03-26] MEDS ORDERED: Ondansetron 4 MG/2 ML SDV IVPUSH PRN (14:41)
[2020-03-26] MEDS ORDERED: Sodium Chloride 0.9% 10 ML Syringe FLUSH PRN (14:41)
[2020-03-26] MEDS: Sodium Chloride 0.9% 1,000 ML IV SCH ×2 (15:13→23:14)
[2020-03-26] MEDS: Sodium Chloride 0.9% 10 ML Syringe FLUSH PRN ×2 (15:13→15:25)
[2020-03-26] MEDS ORDERED: GALCANEZUMAB GNLM 120 MG SUBCUT SCH (15:15)
[2020-03-26] MEDS: Dicyclomine 10 MG Cap PO SCH ×2 (17:35→20:16)
[2020-03-26] MEDS ORDERED: Calcium Carbonate 500 MG Tablet PO SCH (18:00)
[2020-03-26] MEDS: traMADol 50 MG Tab PO PRN (20:16)
[2020-03-26] MEDS: carBAMazepine 100 MG Tab.Chew PO SCH (20:17)
[2020-03-26] MEDS: Atropine/Diphenoxylate 0.025-2.5 MG Tab PO SCH (20:19)
--- NOTE | 2020-03-26 22:54 | HP ---
ADMISSION DATE: 03/26/2020 CHIEF COMPLAINT: Weakness, diarrhea, dehydration. HISTORY OF PRESENT ILLNESS: Ms. Jassi Miranda is a 64-year-old woman with a complex medical history dating back to fibromyalgia and chronic pain syndrome over 20 years. 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 She was treated acutely for this in April of 2014 with tPA. It converted to a hemorrhagic stroke and she was admitted to [facility] where she had a thrombectomy. Also noted at that time was an incidental pulmonary embolus for which she had IVC filter placed. 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 She has a history of chronic abdominal pain and several admissions for medication side effects. She has chronic migraines and has had Botox injections. Back in 2014, during her multiple admissions for stroke-related symptoms, she developed C difficile diarrhea that eventually was successfully treated. Mrs. Jassi Miranda was seen in the clinic today by Dr. Tenorio for persistent diarrhea. She has had a colonoscopy that previously diagnosed ischemic colitis, and she has had intermittent persistent diarrhea since that time. She was asked to do a C difficile test on her stools, but the sample she brought in was a formed stool, not amenable to testing. She is admitted to the hospital now for IV rehydration, resumption of nutrition, and investigation of her diarrhea. PAST MEDICAL HISTORY: Also includes abdominal hysterectomy with multiple surgeries. She has had a right total knee arthroplasty with revision surgery. She has had sinus surgery. She has several admissions for medication side effects. She has chronic essential hypertension and spasticity post stroke for which she has received Botox injections. There is also recorded in her chart history of seizure disorder and history of UT, non-STEMI. Further details could not be found. MEDICATIONS: 1. Tramadol 50 to 100 mg t.i.d. p.r.n. 2. Emgality pen 1 injection monthly for migraines. 3. Reglan 5 mg t.i.d. 4. Multiple vitamin 1 daily. 5. Bentyl 10 mg q.i.d. 6. Calcium 1 b.i.d. 7. Tegretol 200 mg b.i.d. 8. Lipitor 40 mg at bedtime. 9. Fluoxetine 60 mg daily. 10.Zofran 4 mg every 4 hours p.r.n. 11.Nexium 40 mg daily. 12.Bentyl 10 to 20 mg t.i.d. p.r.n. in addition to the 10 mg q.i.d. 13.Lomotil 1 to 2 tabs t.i.d. p.r.n. ALLERGIES: Zomig caused vomiting, Betadine caused rash, aspirin caused bleeding, iopamidol listed as difficulty breathing, and adhesive caused itching. HABITS: Nonsmoker and nondrinker. FAMILY AND SOCIAL HISTORY: The patient is and lives with her , Giovanny, at [place]. REVIEW OF SYSTEMS: No recent seizure or syncope. She does report chronic headaches. No recent change in hearing or vision. No cough, dyspnea, chest pain, palpitations. She reports upper abdominal pain that is constant and watery diarrhea, 10 to 15 stools per day. No swelling or skin rash. PHYSICAL EXAMINATION: GENERAL: She is pale, thin. She does have slight spasticity to her left upper extremity and slightly dysarthric speech. VITAL SIGNS: Blood pressure 110/70, pulse 87, respirations normal, O2 saturation 95% on room air, temp 96.5. SKIN: Showed no sign of rash. Multiple healed surgical scars transversely across her lower abdomen. HEENT: Showed her mouth to be dry. Pupils equal and reactive. Oropharynx is clear. LUNGS: Clear to the bases. HEART: Regular. No murmur or gallop heard. ABDOMEN: Normal bowel sounds. Soft. She has slight distention and tympany in the upper abdomen and the scar in the lower abdomen from multiple surgeries. EXTREMITIES: Show no edema. NEUROLOGIC: Revealed her to have slight contraction deformity to the left hand and slight weakness, left upper extremity, compared to the right. She has full extension and strength in both lower extremities. She does walk with a walker. LABORATORY: Creatinine last on March 15 was 0.72. CRP 25. ASSESSMENT: 1. Chronic diarrhea with a history of ischemic colitis, never completely resolved and may need further surgical resection, now getting rehydrated with improvement in nutrition in prep for repeat colonoscopy. 2. Chronic pain syndrome. 3. History of thrombotic cerebrovascular accident, turned hemorrhagic, 2014, with mild residual left hemiplegia. 4. Multiple psychiatric medications, worrisome for serotonin excess. 5. Chronic migraines. 6. Chronic essential hypertension. PLAN: We will rehydrate her with IV fluids, decrease her fluoxetine and her Reglan, and if she has watery diarrhea, we will recheck a C diff. /[id number] DELILAH/ADRIEL
[2020-03-27] MEDS: traMADol 50 MG Tab PO PRN ×3 (05:18→20:12)
[2020-03-27] MEDS: Ondansetron 4 MG Tab.DIS PO PRN ×4 (05:18→20:12)
[2020-03-27] MEDS: Pantoprazole 40 MG Tab.CR PO SCH (05:23)
[2020-03-27] MEDS: Sodium Chloride 0.9% 1,000 ML IV SCH (06:52)
[2020-03-27] MEDS ORDERED: FLUoxetine 20 MG Cap PO SCH (09:00)
[2020-03-27] MEDS ORDERED: traMADol 50 MG Tab PO PRN (09:09)
[2020-03-27] MEDS: FLUoxetine 20 MG Cap PO SCH (10:04)
[2020-03-27] MEDS: carBAMazepine 100 MG Tab.Chew PO SCH ×2 (10:04→20:12)
[2020-03-27] MEDS: Multivitamins with Iron/Calcium/Folic Acid/Minerals Tab PO SCH (10:04)
[2020-03-27] MEDS: Dicyclomine 10 MG Cap PO SCH ×4 (10:04→20:11)
[2020-03-27] MEDS: Atropine/Diphenoxylate 0.025-2.5 MG Tab PO SCH ×2 (10:07→20:11)
--- NOTE | 2020-03-27 12:26 | PN ---
DATE SEEN: 03/27/2020 HISTORY: Rohit is a 64-year-old woman with chronic abdominal pain, chronic fibromyalgia, on long-term pain med use. She has been found to have ischemic colitis with a previous resection and was due for additional followup colonoscopy. She, however, reported to have multiple episodes of diarrhea, weakness, so she was admitted to acute care on 03/26/2020. Since admission, she has not had any bowel movement. She complains of abdominal pain. Her Reglan was stopped. Her fluoxetine was decreased from 60 to 40 mg daily and she was treated with tramadol. She complains of nausea and abdominal pain, but did eat a full chicken ritu for supper last night. She has not eaten breakfast this morning. PHYSICAL EXAMINATION: GENERAL: She is alert, but pale. VITAL SIGNS: Blood pressure 107/44, pulse 92, temperature 98.4, weight 154 pounds - up 3 pounds from admission, O2 saturation 91% on room air. HEENT: Face is pale. LUNGS: Clear to the bases. HEART: Regular without murmur or gallop. ABDOMEN: Bowel sounds are active, normal. She has tenderness in the epigastric area. EXTREMITIES: No edema. ASSESSMENT: 1. Chronic abdominal pain with history of ischemic colitis. 2. History of diarrhea, but no stools since admission. 3. Multiple potentially interacting medications. PLAN: We will discontinue her IV fluid, increase her tramadol to 100 mg t.i.d. p.r.n. and increase diet and activity as tolerated and plan for discharge within 24 hours if stable. /[id number] DELILAH/ADRIEL
[2020-03-28] MEDS: Pantoprazole 40 MG Tab.CR PO SCH (06:03)
[2020-03-28] MEDS: Ondansetron 4 MG Tab.DIS PO PRN (06:03)
[2020-03-28] MEDS: traMADol 50 MG Tab PO PRN (06:03)
[2020-03-28] MEDS: Dicyclomine 10 MG Cap PO SCH (08:37)
[2020-03-28] MEDS: FLUoxetine 20 MG Cap PO SCH (08:38)
[2020-03-28] MEDS: Multivitamins with Iron/Calcium/Folic Acid/Minerals Tab PO SCH (08:39)
[2020-03-28] MEDS: carBAMazepine 100 MG Tab.Chew PO SCH (08:39)
[2020-03-28] MEDS: Atropine/Diphenoxylate 0.025-2.5 MG Tab PO SCH (08:43)
[2020-03-28 11:21] VITALS: BP 117/58; PULSE 80
--- NOTE | 2020-03-28 12:13 | DISCH ---
DISCHARGE DATE: 03/28/2020 HISTORY: Rohit is a 64-year-old woman with history of chronic pain syndrome for many years, depression, abdominal pain, status post multiple surgeries with a history of ischemic colitis. She was admitted because of persistent diarrhea, abdominal pain, and poor oral intake. On admission, she was started on IV fluids. Laboratory came back with a white count 7700, hemoglobin 13.9, MCV 93. Electrolytes normal. BUN 13, creatinine 0.8. Alkaline phosphatase is 164. Urinalysis, 10-20 white cells with culture for just moderate mixed normal robin. After admission, the patient did not have any stools the first 24 hours. The second day she had a hard stool. She was able to eat her meal satisfactorily without any vomiting. She complained of abdominal pain. During hospitalization, her medications were decreased from 60 to 40 mg of fluoxetine per day. Her metoclopramide was discontinued and her tramadol was decreased from 100 mg she had been taking 6 times a day at home to a max of 100 mg 3 times a day. She is discharged to home in stable condition. She will have follow up with Dr. Tenorio or Oriana Webb in 1 week. 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 MEDICATIONS ON DISCHARGE: 1. Multiple vitamin 1 daily. 2. Emgality Pen 100 mg every 30 days for migraines. 3. Bentyl 10 to 20 mg b.i.d. 4. Calcium with D 1 b.i.d. 5. Tramadol 100 mg t.i.d. p.r.n. 6. Zofran 4 mg q.6 hours p.r.n. nausea. 7. Fluoxetine 40 mg daily. 8. Pantoprazole 40 mg daily. 9. Lomotil 1 tab b.i.d. 10.Tegretol 200 mg b.i.d. She is discharged in stable condition. I have also recommended she supplement her diet with [address] instant breakfast. /[id number] RO/JASPALL
[2020-03-28] MEDS ORDERED: Atropine/Diphenoxylate 0.025-2.5 MG Tab PO SCH (21:00)
== END 2020-03-28 10:35 | disposition home or self-care (01) | DRG 392 ==
LOC: FB.MS 14:25
PROVIDERS: ADMIT Family Medicine; ATTEND Family Medicine
DX: R19.7 Diarrhea, unspecified (principal); I69.354 Hemiplegia and hemiparesis following cerebral infarction affecting left non-dominant side; E86.0 Dehydration; I10 Essential (primary) hypertension; G43.709 Chronic migraine without aura, not intractable, without status migrainosus; G89.4 Chronic pain syndrome; R10.9 Unspecified abdominal pain; R53.1 Weakness; Z20.822 Contact with and (suspected) exposure to COVID-19; Z96.651 Presence of right artificial knee joint; I25.2 Old myocardial infarction; Z87.19 Personal history of other diseases of the digestive system
CPT/HCPCS: 36415; 80053; 81001; 82272; 82962; 83735; 85025; 87086; 93005; 99221; 99232; 99238; A9270-GY; J2405; J7030; U0002

== ENCOUNTER 2020-05-21 20:46 | Emergency (ER) | payer MEDICARE, BC ==
[2020-05-21] MEDS ORDERED: Acetaminophen/HYDROcodone 325-5 MG Tab PO ONE (20:47)
[2020-05-21] MEDS ORDERED: Acetaminophen/HYDROcodone 325-5 MG Tab PO STA (21:03)
[2020-05-21] MEDS ORDERED: Ketorolac 60 MG/2 ML SDV IM STA (21:03)
[2020-05-21] MEDS ORDERED: Ondansetron 4 MG Tab.DIS PO STA (21:03)
--- NOTE | 2020-05-21 22:16 | EDM.PDOC ---
ED HPI GENERAL MEDICAL PROBLEM - General Chief Complaint: Headache Stated Complaint: HEADACHE Time Seen by Provider: 05/21/20 20:50 Source of Information: Reports: Patient, Family History Limitations: Reports: No Limitations - History of Present Illness INITIAL COMMENTS - FREE TEXT/NARRATIVE: Patient presented to the ED because of headache,nausea which started yesterday. She has a history of migraine and she took tramadol but didn't help. She denies having any fever,chills, neck stiffness. Headache Pain Score (Numeric/FACES): 10 - Related Data Allergies Allergy/AdvReac Type Severity Reaction Status Date / Time adhesive Allergy Mild Itching Verified 05/21/20 20:51 iopamidol Allergy Mild Difficulty Verified 05/21/20 20:51 Breathing aspirin Allergy Bleeding Verified 05/21/20 20:51 povidone-iodine Allergy Rash Verified 05/21/20 20:51 [From Betadine] soap [From Betadine] Allergy Rash Verified 05/21/20 20:51 zolmitriptan [From Zomig] Allergy Vomiting Verified 05/21/20 20:51 Home Meds: Home Meds Calcium Carbonate/Vitamin D3 [Calcium 500-Vit D3 200 Tablet] 1 tab PO BIDMEALS 03/14/15 [History] traMADol [Ultram] 50 - 100 mg PO TID PRN 08/29/15 [History] carBAMazepine [Carbamazepine] 200 mg PO BID 08/04/17 [History] Dicyclomine [Bentyl] 10 - 20 mg PO TID PRN 03/26/20 [History] Diphenoxylate HCl/Atropine [Lomotil] 1 - 2 tab PO TID PRN 03/26/20 [History] Esomeprazole Magnesium [Nexium] 40 mg PO DAILY 03/26/20 [History] Galcanezumab-Gnlm [Emgality Pen] 120 mg SUBCUT Q30D 03/26/20 [History] Ondansetron [Zofran ODT] 4 mg PO Q6HR #0 03/28/20 [Rx] FLUoxetine HCl [Prozac] 20 mg PO DAILY 05/21/20 [History] Fremanezumab-Vfrm [Ajovy Autoinjector] 225 mg ASDIRECTED 05/21/20 [History] Multivitamins/Minerals [Vitamins and Minerals] 1 tab PO BEDTIME 05/21/20 [History] atorvaSTATin Calcium [Lipitor] 40 mg PO BEDTIME 05/21/20 [History] Past Medical History HEENT History: Reports: Head Other HEENT History: mechanical thrombectomy for stroke, stroke, brain edema to right temporal occipital area. Cardiovascular History: Reports: Blood Clots/VTE/DVT, High Cholesterol Respiratory History: Reports: COPD, Intubation, Previous, PE Other Respiratory History: filters on each lung for blood clots pt reports Gastrointestinal History: Reports: Diverticulosis, GERD, GI Bleed, Hemorrhoids, Irritable Bowel Syndrome, Other (See Below) Other Gastrointestinal History: Has been having chronic nausea, colitis Genitourinary History: Reports: Urinary Incontinence DASHBOARD DEVELOPER History: Reports: Prolapsed Uterus, Other (See Below) Other DASHBOARD DEVELOPER History: hysterectomy, G0 Musculoskeletal History: Reports: Back Pain, Chronic, Fracture, Neck Pain, Chronic Other Musculoskeletal History: Weakness, hx hx L upper arm Neurological History: Reports: CVA, Headaches, Chronic, Migraines, Vertigo Other Neuro History: CVA with severe L sided weakness 04/2014, brainbleeding in brain back in June 2014. Drained in [place] Psychiatric History: Reports: Anxiety, Depression, Panic Attack Hematologic History: Reports: Blood Transfusion(s) Immunologic History: Reports: None Oncologic (Cancer) History: Reports: None Dermatologic History: Reports: Other (See Below) Other Dermatologic History: NON HEALING ABD WOUND - Infectious Disease History Infectious Disease History: Reports: C-Difficile, Chicken Pox, Measles, Mumps - Past Surgical History Head Surgeries/Procedures: Reports: Craniotomy HEENT Surgical History: Reports: None Other Cardiovascular Surgeries/Procedures: stroke in April 2014 Respiratory Surgical History: Reports: Other (See Below) Other Respiratory Surgeries/Procedures: Blood filters in each lung for blood clots, pt reports. GI Surgical History: Reports: Appendectomy, Colonoscopy, EGD Other GI Surgeries/Procedures: multi wound closures on abd in past Female Surgical History: Reports: D&C, Hysterectomy, Oophorectomy, Salpingo- Oophorectomy Endocrine Surgical History: Reports: None Neurological Surgical History: Reports: Intracranial Musculoskeletal Surgical History: Reports: Knee Replacement Other Musculoskeletal Surgeries/Procedures:: R knee replacement Oncologic Surgical History: Reports: None Dermatological Surgical History: Reports: Skin Graft Social & Family History - Family History Family Medical History: No Pertinent Family History HEENT: Reports: Cataract, Macular Degeneration Cardiac: Reports: High Cholesterol Respiratory: Reports: None GI: Reports: Cholelithiasis : Reports: Renal Calculus OBGYN: Reports: Musculoskeletal: Reports: Arthritis, Back pain, Chronic, Osteoporosis Neurological: Reports: Migraines Psychiatric: Reports: Anxiety Endocrine/Metabolic: Reports: Diabetes, type II Hematologic: Reports: None Immunologic: Reports: None Dermatologic: Reports: None Oncologic: Reports: Leukemia, Prostate - Tobacco Use Tobacco Use Status *Q: Former Tobacco User Used Tobacco, but Quit: Yes Month/Year Tobacco Last Used: 2018 - Caffeine Use Caffeine Use: Reports: None - Recreational Drug Use Recreational Drug Use: No - Living Situation & Occupation Living situation: Reports: Occupation: Disabled ED ROS GENERAL - Review of Systems Review Of Systems: See Below Constitutional: Reports: No Symptoms HEENT: Reports: No Symptoms Respiratory: Reports: No Symptoms Cardiovascular: Reports: No Symptoms Endocrine: Reports: No Symptoms GI/Abdominal: Reports: No Symptoms : Reports: No Symptoms Musculoskeletal: Reports: No Symptoms Skin: Reports: No Symptoms Neurological: Reports: Headache Psychiatric: Reports: No Symptoms Hematologic/Lymphatic: Reports: No Symptoms - Physical Exam Exam: See Below Exam Limited By: No Limitations General Appearance: Alert, No Apparent Distress Eye Exam: Bilateral Eye: PERRL Ears: Normal External Exam, Normal Canal Nose: Normal Inspection, Normal Mucosa Throat/Mouth: Normal Inspection, Normal Lips, Normal Oropharynx Head Exam: Atraumatic Neck: Normal Inspection, Supple, Non-Tender, Full Range of Motion Respiratory/Chest: No Respiratory Distress, Lungs Clear, Normal Breath Sounds, No Accessory Muscle Use, Chest Non-Tender Cardiovascular: Normal Peripheral Pulses, Regular Rate, Rhythm, No Edema, No Gallop, No JVD, No Murmur, No Rub GI/Abdominal: Normal Bowel Sounds, Soft, Non-Tender, No Organomegaly Neuro Exam (Abbreviated): Alert, Oriented, CN II-XII Intact, Normal Cognition, Normal Reflexes, No Motor/Sensory Deficits Back Exam: Normal Inspection Extremities: Normal Inspection, Normal Range of Motion, Non-Tender, No Pedal Edema, Normal Capillary Refill Psychiatric: Normal Affect, Normal Mood Skin Exam: Warm Course - Vital Signs Text/Narrative:: [place] 5/325, 2 PO x1 Toradol 60 mg IM x1 Zofran ODT 4 mg PO x1 Last Recorded V/S: Last Vital Signs Temp 35.7 C L 05/21/20 20:46 Pulse 90 05/21/20 22:14 Resp 18 05/21/20 22:14 BP 125/53 L 05/21/20 22:14 Pulse Ox 95 05/21/20 22:14 - Orders/Labs/Meds Meds: Medications Discontinued Medications Generic Name Dose Route Start Last Admin Trade Name Jimy PRN Reason Stop Dose Admin Hydrocodone Bitart/Acetaminophen 2 tab 05/21/20 21:03 05/21/20 21:20 Acetaminophen/Hydrocodone 325-5 Mg Tab PO 05/21/20 21:04 2 tab NOW STA Administration Ketorolac Tromethamine 60 mg 05/21/20 21:03 05/21/20 21:26 Ketorolac 60 Mg/2 Ml Sdv IM 05/21/20 21:04 60 mg NOW STA Administration Ondansetron HCl 4 mg 05/21/20 21:03 05/21/20 21:20 Ondansetron 4 Mg Tab.Dis PO 05/21/20 21:04 4 mg NOW STA Administration Departure - Departure Time of Disposition: 22:15 Disposition: Home, Self-Care 01 Condition: Good Clinical Impression: Migraine - Discharge Information Instructions: Migraine Headache, [id number] Referrals: Alen Tenorio MD [Primary Care Provider] - Forms: ED Department Discharge Additional Instructions: Please read discharge instructions on migraine Headache Take tramadol 100 mg every 8 hours as needed for mild to moderate headache For severe headache take norco 5/325, 1-2 tablets every 4-6 hours as needed for pain Follow up as needed Sepsis Event Note (ED) - Evaluation Sepsis Screening Result: No Definite Risk - Focused Exam Vital Signs: Vital Signs Temp Pulse Resp BP Pulse Ox 05/21/20 22:14 90 18 125/53 L 95 05/21/20 20:46 35.7 C L 86 18 143/64 H 97
[2020-05-21 22:35] VITALS: BP 125/53; PULSE 90
== END 2020-05-21 22:25 | disposition home or self-care (01) ==
LOC: FB.ED 20:46
DX: G43.909 Migraine, unspecified, not intractable, without status migrainosus (principal); E78.00 Pure hypercholesterolemia, unspecified; J44.9 Chronic obstructive pulmonary disease, unspecified; K21.9 Gastro-esophageal reflux disease without esophagitis; Z91.048 Other nonmedicinal substance allergy status; Z88.6 Allergy status to analgesic agent; Z88.8 Allergy status to other drugs, medicaments and biological substances; Z79.899 Other long term (current) drug therapy; Z86.711 Personal history of pulmonary embolism; Z86.73 Personal history of transient ischemic attack (TIA), and cerebral infarction without residual deficits
CPT/HCPCS: 96372; 99282; 99283; A9270-GY; J1885

== ENCOUNTER 2021-04-06 19:10 | Emergency (ER) | payer MEDICARE, BC ==
[2021-04-06 19:16] VITALS: BP 134/72; PULSE 100
[2021-04-06] MEDS ORDERED: Ondansetron 4 MG Tab.DIS PO ONE (19:41)
[2021-04-06] MEDS ORDERED: Ketorolac 30 MG/ML SDV IM ONE (19:41)
[2021-04-06] MEDS ORDERED: Dexamethasone 4 MG Tab PO ONE (19:43)
== END 2021-04-06 20:10 | disposition home or self-care (01) ==
LOC: FB.ED 19:10
DX: G43.909 Migraine, unspecified, not intractable, without status migrainosus (principal); E78.00 Pure hypercholesterolemia, unspecified; J44.9 Chronic obstructive pulmonary disease, unspecified; K21.9 Gastro-esophageal reflux disease without esophagitis; Z86.73 Personal history of transient ischemic attack (TIA), and cerebral infarction without residual deficits; Z91.048 Other nonmedicinal substance allergy status; Z91.041 Radiographic dye allergy status; Z88.8 Allergy status to other drugs, medicaments and biological substances; Z79.899 Other long term (current) drug therapy
CPT/HCPCS: 96372; 99283; J1885; J8540; Q0162

== ENCOUNTER 2021-11-01 18:39 | Emergency (ER) | payer MEDICARE, BC ==
[2021-11-01] MEDS ORDERED: Sodium Chloride 0.9% 1,000 ML IV ONE (18:51)
[2021-11-01] MEDS ORDERED: Ketorolac 30 MG/ML SDV IVPUSH ONE (18:52)
[2021-11-01] MEDS ORDERED: diphenhydrAMINE 50 MG/ML SDV IVPUSH ONE (18:52)
[2021-11-01] MEDS ORDERED: Acetaminophen 500 MG Tab PO ONE (18:57)
[2021-11-02 02:23] VITALS: BP 114/59; PULSE 95
== END 2021-11-01 20:44 | disposition home or self-care (01) ==
LOC: FB.ED 18:39
DX: G43.909 Migraine, unspecified, not intractable, without status migrainosus (principal); J44.9 Chronic obstructive pulmonary disease, unspecified; Z91.048 Other nonmedicinal substance allergy status; Z88.6 Allergy status to analgesic agent; Z91.041 Radiographic dye allergy status; Z88.8 Allergy status to other drugs, medicaments and biological substances; Z79.899 Other long term (current) drug therapy; Z90.49 Acquired absence of other specified parts of digestive tract; Z90.710 Acquired absence of both cervix and uterus
CPT/HCPCS: 96361; 96374; 96375; 99283; A9270; J1200; J1885; J7030

== ENCOUNTER 2022-03-16 14:50 | Emergency (ER) | payer BC, MEDICARE ==
[2022-03-16] MEDS ORDERED: Sodium Chloride 0.9% 10 ML Syringe FLUSH PRN (15:44)
[2022-03-16 16:43] LABS: ESTIMATED GFR 95 mL/min (>60)
[2022-03-16 17:16] VITALS: BP 122/54; PULSE 93
[2022-03-16 17:23] LABS: CORONAVIRUS COVID-19 NAA NEGATIVE (NEGATIVE)
[2022-03-16] MEDS ORDERED: Sodium Chloride 0.9% 1,000 ML IV ONE (17:50)
[2022-03-16] MEDS ORDERED: diphenhydrAMINE 50 MG/ML SDV IVPUSH ONE (18:05)
[2022-03-16] MEDS ORDERED: Prochlorperazine 10 MG/2 ML SDV IVPUSH ONE (18:05)
[2022-03-16] MEDS ORDERED: Azithromycin 500 MG Tab PO ONE (20:43)
== END 2022-03-16 21:22 | disposition home or self-care (01) ==
LOC: FB.ED 14:50
DX: G43.909 Migraine, unspecified, not intractable, without status migrainosus (principal); J40 Bronchitis, not specified as acute or chronic; E86.0 Dehydration; J44.9 Chronic obstructive pulmonary disease, unspecified; K21.9 Gastro-esophageal reflux disease without esophagitis; E78.00 Pure hypercholesterolemia, unspecified; Z91.041 Radiographic dye allergy status; Z91.048 Other nonmedicinal substance allergy status; Z88.8 Allergy status to other drugs, medicaments and biological substances; Z79.899 Other long term (current) drug therapy; Z86.73 Personal history of transient ischemic attack (TIA), and cerebral infarction without residual deficits; Z87.891 Personal history of nicotine dependence; Z20.822 Contact with and (suspected) exposure to COVID-19; W18.30XA Fall on same level, unspecified, initial encounter
CPT/HCPCS: 0241U; 36415; 70450; 71045; 80053; 81001; 83735; 84484; 85025; 87086; 93005; 93010; 96361; 96374; 96375; 99283; 99285-25; A9270-GY; J0780; J1200; J7030

== ENCOUNTER 2023-02-08 17:17 | Inpatient (IN) | payer MEDICARE ==
[2023-02-08] MEDS ORDERED: Ondansetron 4 MG/2 ML SDV IVPUSH ONE (17:32)
[2023-02-08] MEDS ORDERED: HYDROmorphone 2 MG/ML SDV IVPUSH ONE (17:32)
[2023-02-08 18:10] LABS: BASOPHILS PERCENT AUTO 0.3 % (0.2-1.5); EOSINOPHILS ABSOLUTE AUTO 0.1 x10-3/uL (0.0-0.8); EOSINOPHILS PERCENT AUTO 1.5 % (0.6-8.1); HEMATOCRIT 40.3 % (34.2-48.2); HEMOGLOBIN 13.2 g/dL (11.4-15.5); LYMPHOCYTES ABSOLUTE AUTO 0.4 x10-3/uL (1.0-4.4); LYMPHOCYTES PERCENT AUTO 5.7 % (18.4-52.1); MEAN CORPUSCULAR HEMOGLOBIN 29.3 pg (23.9-33.9); MEAN CORPUSCULAR HGB CONC 32.9 g/dL (31.9-34.8); MEAN CORPUSCULAR VOLUME 89.2 fL (76.7-100.5); MEAN PLATELET VOLUME 8.6 fL (7.1-12.4); MONOCYTES ABSOLUTE AUTO 0.7 x10-3/uL (0.3-1.0); MONOCYTES PERCENT AUTO 9.6 % (4.4-15.7); NEUTROPHILS ABSOLUTE AUTO 6.4 x10-3/uL (1.5-6.3); NEUTROPHILS PERCENT AUTO 82.9 % (30.8-76.2); PLATELET COUNT,PLT 259 x10(3)uL (151-488); RED BLOOD CELL COUNT 4.51 x10(6)uL (3.60-5.20); RED CELL DISTRIBUTION WIDTH 16.3 % (12.3-16.5); WHITE BLOOD CELL COUNT,WBC 7.7 x10-3/uL (3.0-10.3)
[2023-02-08 18:12] LABS: BLOOD UREA NITROGEN,BUN 20 mg/dL (7-18); CALCIUM 8.9 mg/dL (8.6-10.2); CARBON DIOXIDE,CO2 26 mmol/L (21-32); CHLORIDE,CL 102 mmol/L (100-110); CREATININE 0.8 mg/dL (0.55-1.02); EST CRCL DRUG DOSING (CG) 58.93 mL/min; ESTIMATED GFR 81 mL/min (>60); GLUCOSE RANDOM 127 mg/dL (80-116); POTASSIUM,K 4.1 mmol/L (3.5-5.3); SODIUM,NA 139 mmol/L (135-145)
[2023-02-08 18:20] LABS: INFLUENZA A NAA POSITIVE (NEGATIVE); INFLUENZA B NAA NEGATIVE (NEGATIVE); RESPIRATORY SYNCYTIAL VIR NAA NEGATIVE (NEGATIVE)
[2023-02-08 18:21] LABS: CORONAVIRUS COVID-19 NAA NEGATIVE (NEGATIVE)
[2023-02-08] MEDS ORDERED: Albuterol/Ipratropium 3.0-0.5 MG/3 ML Neb Soln NEB ONE (18:46)
[2023-02-08] MEDS ORDERED: methylPREDNISolone Sodium Succinate 125 MG/2 ML SDV IVPUSH ONE (18:47)
[2023-02-08] MEDS ORDERED: Enoxaparin 40 MG/0.4 ML Syringe SUBCUT SCH (19:30)
[2023-02-08] MEDS ORDERED: Naloxone 0.4 MG/ML SDV IVPUSH PRN (19:30)
[2023-02-08] MEDS: Acetaminophen 325 MG Tab PO PRN (21:12)
[2023-02-08] MEDS: Sodium Chloride 0.9% 1,000 ML IV SCH (21:12)
[2023-02-08] MEDS: Benzonatate 100 MG Cap PO SCH (21:12)
[2023-02-08] MEDS: Sodium Chloride 0.9% 10 ML Syringe FLUSH PRN (21:12)
[2023-02-08] MEDS: Albuterol/Ipratropium 3.0-0.5 MG/3 ML Neb Soln NEB SCH (21:13)
[2023-02-08] MEDS: Oseltamivir 75 MG Cap PO SCH (21:13)
[2023-02-08] MEDS: Enoxaparin 40 MG/0.4 ML Syringe SUBCUT SCH (21:50)
[2023-02-08] MEDS: HYDROmorphone 2 MG/ML SDV IVPUSH PRN (21:51)
[2023-02-09] MEDS: HYDROmorphone 2 MG/ML SDV IVPUSH PRN (02:04)
[2023-02-09] MEDS: Ondansetron 4 MG/2 ML SDV IV PRN ×2 (02:06→17:06)
[2023-02-09] MEDS: Sodium Chloride 0.9% 1,000 ML IV SCH ×3 (05:30→22:39)
[2023-02-09] MEDS: Acetaminophen 325 MG Tab PO PRN ×2 (05:30→09:43)
[2023-02-09] MEDS: Albuterol/Ipratropium 3.0-0.5 MG/3 ML Neb Soln NEB SCH ×4 (06:20→20:55)
[2023-02-09 06:36] LABS: BASOPHILS PERCENT AUTO 0.2 % (0.2-1.5); EOSINOPHILS PERCENT AUTO 0.1 % (0.6-8.1); HEMATOCRIT 35.8 % (34.2-48.2); HEMOGLOBIN 11.8 g/dL (11.4-15.5); LYMPHOCYTES ABSOLUTE AUTO 0.4 x10-3/uL (1.0-4.4); LYMPHOCYTES PERCENT AUTO 6.4 % (18.4-52.1); MEAN CORPUSCULAR HEMOGLOBIN 29.3 pg (23.9-33.9); MEAN CORPUSCULAR HGB CONC 32.9 g/dL (31.9-34.8); MEAN PLATELET VOLUME 8.8 fL (7.1-12.4); MONOCYTES ABSOLUTE AUTO 0.6 x10-3/uL (0.3-1.0); MONOCYTES PERCENT AUTO 9.7 % (4.4-15.7); NEUTROPHILS ABSOLUTE AUTO 5.2 x10-3/uL (1.5-6.3); NEUTROPHILS PERCENT AUTO 83.6 % (30.8-76.2); PLATELET COUNT,PLT 218 x10(3)uL (151-488); RED BLOOD CELL COUNT 4.02 x10(6)uL (3.60-5.20); RED CELL DISTRIBUTION WIDTH 16.3 % (12.3-16.5); WHITE BLOOD CELL COUNT,WBC 6.2 x10-3/uL (3.0-10.3)
[2023-02-09 06:48] LABS: A/G RATIO 0.9; ALANINE AMINOTRANSFERASE,ALT 24 U/L (12-36); ALBUMIN 2.9 g/dL (3.2-4.6); ALKALINE PHOSPHATASE 93 IU/L (56-112); ASPARTATE AMNIOTRANSFERASE,AST 21 IU/L (5-25); BILIRUBIN TOTAL 0.1 mg/dL (0.1-1.3); BLOOD UREA NITROGEN,BUN 18 mg/dL (7-18); CALCIUM 8.8 mg/dL (8.6-10.2); CARBON DIOXIDE,CO2 28 mmol/L (21-32); CHLORIDE,CL 105 mmol/L (100-110); CREATININE 0.5 mg/dL (0.55-1.02); EST CRCL DRUG DOSING (CG) 94.28 mL/min; ESTIMATED GFR 103 mL/min (>60); GLUCOSE RANDOM 117 mg/dL (80-116); POTASSIUM,K 4.1 mmol/L (3.5-5.3); PROTEIN TOTAL,TP 6.2 g/dL (6.0-8.0); SODIUM,NA 139 mmol/L (135-145)
[2023-02-09] MEDS: Oseltamivir 75 MG Cap PO SCH ×2 (09:43→20:58)
[2023-02-09] MEDS: Benzonatate 100 MG Cap PO SCH ×3 (09:43→21:09)
[2023-02-09] MEDS ORDERED: Gabapentin 300 MG Cap PO PRN (10:44)
[2023-02-09] MEDS ORDERED: Bismuth Subsalicylate 262 MG Tab.Chew PO PRN (10:44)
[2023-02-09] MEDS ORDERED: Calcium Carbonate 500 MG Tab.Chew PO PRN (10:44)
[2023-02-09] MEDS ORDERED: Albuterol 8 GM Inhaler INH PRN (10:44)
[2023-02-09] MEDS ORDERED: Ondansetron 4 MG Tab.DIS PO PRN (10:44)
[2023-02-09] MEDS ORDERED: Cyclobenzaprine 10 MG Tab PO PRN (10:52)
[2023-02-09] MEDS: traMADol 50 MG Tab PO PRN ×2 (11:10→18:46)
[2023-02-09] MEDS: predniSONE 20 MG Tab PO SCH (11:40)
[2023-02-09] MEDS: Doxycycline 100 MG Tab PO SCH ×2 (11:41→20:58)
[2023-02-09] MEDS: FLUoxetine 20 MG Cap PO SCH (11:41)
[2023-02-09] MEDS: carBAMazepine 100 MG Tab.Chew PO SCH ×2 (11:41→20:58)
[2023-02-09] MEDS: Sodium Chloride 0.9% 10 ML Syringe FLUSH PRN (17:05)
[2023-02-09] MEDS: Rosuvastatin 5 MG Tab PO SCH (20:57)
[2023-02-09] MEDS: traZODone 50 MG Tab PO SCH (20:58)
[2023-02-09] MEDS: Gabapentin 300 MG Cap PO SCH (21:09)
[2023-02-09] MEDS: Enoxaparin 40 MG/0.4 ML Syringe SUBCUT SCH (21:58)
[2023-02-09] MEDS ORDERED: Sodium Chloride 0.9% 1,000 ML IV SCH (23:00)
[2023-02-10] MEDS: Acetaminophen 325 MG Tab PO PRN (05:03)
[2023-02-10] MEDS: Pantoprazole 40 MG Tab.CR PO SCH (05:45)
[2023-02-10] MEDS: Albuterol/Ipratropium 3.0-0.5 MG/3 ML Neb Soln NEB SCH ×4 (06:26→20:37)
[2023-02-10 07:16] LABS: A/G RATIO 0.9; ALANINE AMINOTRANSFERASE,ALT 28 U/L (12-36); ALBUMIN 2.7 g/dL (3.2-4.6); ALKALINE PHOSPHATASE 82 IU/L (56-112); ASPARTATE AMNIOTRANSFERASE,AST 35 IU/L (5-25); BILIRUBIN TOTAL 0.2 mg/dL (0.1-1.3); BLOOD UREA NITROGEN,BUN 11 mg/dL (7-18); CALCIUM 7.9 mg/dL (8.6-10.2); CARBON DIOXIDE,CO2 28 mmol/L (21-32); CHLORIDE,CL 105 mmol/L (100-110); CREATININE 0.5 mg/dL (0.55-1.02); EST CRCL DRUG DOSING (CG) 94.28 mL/min; ESTIMATED GFR 103 mL/min (>60); GLUCOSE RANDOM 90 mg/dL (80-116); POTASSIUM,K 3.1 mmol/L (3.5-5.3); PROTEIN TOTAL,TP 5.7 g/dL (6.0-8.0); SODIUM,NA 139 mmol/L (135-145)
[2023-02-10 07:38] LABS: HEMATOCRIT 34.9 % (34.2-48.2); HEMOGLOBIN 11.4 g/dL (11.4-15.5); MEAN CORPUSCULAR HGB CONC 32.7 g/dL (31.9-34.8); MEAN CORPUSCULAR VOLUME 88.8 fL (76.7-100.5); MEAN PLATELET VOLUME 8.7 fL (7.1-12.4); PLATELET COUNT,PLT 210 x10(3)uL (151-488); RED BLOOD CELL COUNT 3.93 x10(6)uL (3.60-5.20); RED CELL DISTRIBUTION WIDTH 16.5 % (12.3-16.5); WHITE BLOOD CELL COUNT,WBC 5.6 x10-3/uL (3.0-10.3)
[2023-02-10 07:54] LABS: LYMPHOCYTES PERCENT MAN 20 % (13-37); MONOCYTES PERCENT MAN 15 % (4-12); SEG NEUTROPHILS PERCENT MAN 65 % (46-82)
[2023-02-10] MEDS: carBAMazepine 100 MG Tab.Chew PO SCH ×2 (08:15→20:39)
[2023-02-10] MEDS: predniSONE 20 MG Tab PO SCH (08:15)
[2023-02-10] MEDS: FLUoxetine 20 MG Cap PO SCH (08:15)
[2023-02-10] MEDS: Doxycycline 100 MG Tab PO SCH ×2 (08:15→20:40)
[2023-02-10] MEDS: Oseltamivir 75 MG Cap PO SCH ×2 (08:15→20:38)
[2023-02-10] MEDS: Benzonatate 100 MG Cap PO SCH ×3 (08:15→20:39)
[2023-02-10] MEDS ORDERED: Potassium Chloride 20 MEQ Tab.ER PO ONE (08:43)
[2023-02-10] MEDS: Ondansetron 4 MG/2 ML SDV IV PRN ×2 (10:08→15:30)
[2023-02-10] MEDS: traMADol 50 MG Tab PO PRN ×2 (11:30→19:56)
[2023-02-10] MEDS: Sodium Chloride 0.9% 1,000 ML IV SCH (12:09)
[2023-02-10] MEDS: Sodium Chloride 0.9% 10 ML Syringe FLUSH PRN (15:30)
[2023-02-10] MEDS: Rosuvastatin 5 MG Tab PO SCH (20:37)
[2023-02-10] MEDS: Gabapentin 300 MG Cap PO SCH (20:38)
[2023-02-10] MEDS: traZODone 50 MG Tab PO SCH (20:39)
[2023-02-10] MEDS: Enoxaparin 40 MG/0.4 ML Syringe SUBCUT SCH (22:13)
[2023-02-11] MEDS: Sodium Chloride 0.9% 1,000 ML IV SCH (00:18)
[2023-02-11] MEDS: Pantoprazole 40 MG Tab.CR PO SCH (06:01)
[2023-02-11] MEDS: Albuterol/Ipratropium 3.0-0.5 MG/3 ML Neb Soln NEB SCH ×2 (06:02→10:47)
[2023-02-11 06:53] LABS: HEMOGLOBIN 11.9 g/dL (11.4-15.5); MEAN CORPUSCULAR HEMOGLOBIN 29.3 pg (23.9-33.9); MEAN CORPUSCULAR HGB CONC 33.2 g/dL (31.9-34.8); MEAN CORPUSCULAR VOLUME 88.5 fL (76.7-100.5); MEAN PLATELET VOLUME 8.8 fL (7.1-12.4); PLATELET COUNT,PLT 204 x10(3)uL (151-488); RED BLOOD CELL COUNT 4.07 x10(6)uL (3.60-5.20); RED CELL DISTRIBUTION WIDTH 16.1 % (12.3-16.5); WHITE BLOOD CELL COUNT,WBC 6.1 x10-3/uL (3.0-10.3)
[2023-02-11 07:08] LABS: A/G RATIO 0.9; ALANINE AMINOTRANSFERASE,ALT 35 U/L (12-36); ALBUMIN 2.8 g/dL (3.2-4.6); ALKALINE PHOSPHATASE 81 IU/L (56-112); BILIRUBIN TOTAL 0.3 mg/dL (0.1-1.3); BLOOD UREA NITROGEN,BUN 11 mg/dL (7-18); CALCIUM 7.9 mg/dL (8.6-10.2); CARBON DIOXIDE,CO2 27 mmol/L (21-32); CHLORIDE,CL 106 mmol/L (100-110); CREATININE 0.5 mg/dL (0.55-1.02); EST CRCL DRUG DOSING (CG) 94.28 mL/min; ESTIMATED GFR 103 mL/min (>60); GLUCOSE RANDOM 94 mg/dL (80-116); SODIUM,NA 140 mmol/L (135-145)
[2023-02-11 07:10] LABS: ASPARTATE AMNIOTRANSFERASE,AST 39 IU/L (5-25)
[2023-02-11 07:18] LABS: EOSINOPHILS PERCENT MAN 1 % (0-5); LYMPHOCYTES PERCENT MAN 33 % (13-37); MONOCYTES PERCENT MAN 11 % (4-12); SEG NEUTROPHILS PERCENT MAN 55 % (46-82)
[2023-02-11] MEDS: predniSONE 20 MG Tab PO SCH (08:15)
[2023-02-11] MEDS: FLUoxetine 20 MG Cap PO SCH (08:44)
[2023-02-11] MEDS: Doxycycline 100 MG Tab PO SCH (08:44)
[2023-02-11] MEDS: Benzonatate 100 MG Cap PO SCH ×2 (08:44→13:41)
[2023-02-11] MEDS: Oseltamivir 75 MG Cap PO SCH (08:44)
[2023-02-11] MEDS: carBAMazepine 100 MG Tab.Chew PO SCH (08:44)
[2023-02-11] MEDS ORDERED: Tiotropium Bromide 4 GM Inhalation Spray (2.5mcg/1 dose; 10 doses) INH SCH (10:15)
[2023-02-11] MEDS: Ondansetron 4 MG/2 ML SDV IV PRN (13:36)
[2023-02-11] MEDS: Sodium Chloride 0.9% 10 ML Syringe FLUSH PRN (13:41)
[2023-02-11 14:39] VITALS: BP 139/69; PULSE 94
== END 2023-02-11 14:15 | disposition home or self-care (01) | DRG 193 ==
LOC: FB.ED 17:17 → FB.MS 19:30 → OBSVTOIN 02-09 10:57
PROVIDERS: ADMIT Family Medicine; ATTEND Family Medicine
DX: J10.1 Influenza due to other identified influenza virus with other respiratory manifestations (principal); J96.01 Acute respiratory failure with hypoxia; I69.354 Hemiplegia and hemiparesis following cerebral infarction affecting left non-dominant side; J44.1 Chronic obstructive pulmonary disease with (acute) exacerbation; I25.10 Atherosclerotic heart disease of native coronary artery without angina pectoris; R79.89 Other specified abnormal findings of blood chemistry; G43.711 Chronic migraine without aura, intractable, with status migrainosus; J41.8 Mixed simple and mucopurulent chronic bronchitis; Z96.659 Presence of unspecified artificial knee joint; E78.00 Pure hypercholesterolemia, unspecified; G89.29 Other chronic pain; M54.9 Dorsalgia, unspecified; F41.9 Anxiety disorder, unspecified; F32.A Depression, unspecified; J44.9 Chronic obstructive pulmonary disease, unspecified; Z79.51 Long term (current) use of inhaled steroids; K21.9 Gastro-esophageal reflux disease without esophagitis; Z91.041 Radiographic dye allergy status; Z88.6 Allergy status to analgesic agent; Z91.048 Other nonmedicinal substance allergy status; Z86.718 Personal history of other venous thrombosis and embolism; Z90.722 Acquired absence of ovaries, bilateral; Z11.52 Encounter for screening for COVID-19; Z88.8 Allergy status to other drugs, medicaments and biological substances; Z79.899 Other long term (current) drug therapy; Z90.49 Acquired absence of other specified parts of digestive tract; Z90.710 Acquired absence of both cervix and uterus; Z87.891 Personal history of nicotine dependence; Z20.822 Contact with and (suspected) exposure to COVID-19
CPT/HCPCS: 0241U; 36415; 70450; 71250; 80048; 80053; 83735; 83880; 84484; 85025; 93005; 94150; 94640; 96374; 96375; 99285-25; A9270-GY; J1170; J1650; J2405; J2930; J3490; J7030; J7512; J7620; Q0162

== ENCOUNTER 2023-07-29 06:45 | Day surgery (SDC) | payer MEDICARE ==
[~2023-07-29 06:45] MED LIST: Sodium Chloride 0.9% 10 ML Syringe FLUSH PRN
[2023-07-29] MEDS ORDERED: Lidocaine 2% 100 MG/5 ML Syringe IVPUSH ONE (06:46)
[2023-07-29] MEDS ORDERED: Midazolam 1 MG/ML 2 ML SDV IV ONE (06:46)
[2023-07-29] MEDS ORDERED: Propofol 200 MG/20 ML SDV IV ONE (06:46)
[2023-07-29] MEDS ORDERED: Ketorolac 30 MG/ML SDV IVPUSH ONE (06:46)
[2023-07-29] MEDS: Lactated Ringers 1,000 ML IV SCH (08:02)
[2023-07-29] MEDS: Simethicone Drops 40 MG/0.6 ML 30 ML Bottle ONE (08:38)
[2023-07-29 09:57] VITALS: BP 128/56; PULSE 81
== END 2023-07-29 09:50 | disposition home or self-care (01) ==
LOC: FB.SDS 06:45
PROVIDERS: ATTEND Surgery
DX: K31.A11 Gastric intestinal metaplasia without dysplasia, involving the antrum (principal); K31.89 Other diseases of stomach and duodenum; J44.9 Chronic obstructive pulmonary disease, unspecified; I10 Essential (primary) hypertension; E78.5 Hyperlipidemia, unspecified; I25.2 Old myocardial infarction; Z87.891 Personal history of nicotine dependence; Z79.899 Other long term (current) drug therapy; Z88.6 Allergy status to analgesic agent; Z88.8 Allergy status to other drugs, medicaments and biological substances; Z91.048 Other nonmedicinal substance allergy status
CPT/HCPCS: 00731; 43239; 88305; 88342; A9270; J1885; J2250; J2704; J7120

== ENCOUNTER 2023-10-20 06:54 | Inpatient (IN) | payer MEDICARE ==
[2023-10-20] MEDS: Sodium Chloride 0.9% 1,000 ML IV SCH (07:53)
[2023-10-20 08:28] LABS: BLOOD UREA NITROGEN,BUN 18 mg/dL (7-18); BUN/CREATININE RATIO 25.7 (9-20); CALCIUM 8.8 mg/dL (8.6-10.2); CARBON DIOXIDE,CO2 28 mmol/L (21-32); CHLORIDE,CL 103 mmol/L (100-110); CREATININE 0.7 mg/dL (0.55-1.02); EST CRCL DRUG DOSING (CG) 66.42 mL/min; ESTIMATED GFR 94 mL/min (>60); GLUCOSE RANDOM 116 mg/dL (80-116); HEMATOCRIT 39.6 % (34.2-48.2); MEAN CORPUSCULAR HEMOGLOBIN 30.7 pg (23.9-33.9); MEAN CORPUSCULAR HGB CONC 32.7 g/dL (31.9-34.8); MEAN CORPUSCULAR VOLUME 93.8 fL (76.7-100.5); MEAN PLATELET VOLUME 8.6 fL (7.1-12.4); PLATELET COUNT,PLT 308 x10(3)uL (151-488); POTASSIUM,K 3.9 mmol/L (3.5-5.3); RED BLOOD CELL COUNT 4.22 x10(6)uL (3.60-5.20); RED CELL DISTRIBUTION WIDTH 14.1 % (12.3-16.5); SODIUM,NA 140 mmol/L (135-145); WHITE BLOOD CELL COUNT,WBC 17.2 x10-3/uL (3.0-10.3)
[2023-10-20 08:31] LABS: INR 0.98 (1.00-1.24); PROTHROMBIN TIME 10.2 sec (9.0-11.1)
[2023-10-20 08:34] LABS: A/G RATIO 0.8; ALANINE AMINOTRANSFERASE,ALT 16 U/L (12-36); ALBUMIN 3.1 g/dL (3.2-4.6); ALKALINE PHOSPHATASE 113 IU/L (56-112); ASPARTATE AMNIOTRANSFERASE,AST 14 IU/L (5-25); BILIRUBIN TOTAL 0.4 mg/dL (0.1-1.3); PROTEIN TOTAL,TP 7.1 g/dL (6.0-8.0)
[2023-10-20 08:42] LABS: BAND PERCENT MAN 6 % (0-6); LYMPHOCYTES PERCENT MAN 1 % (13-37); MONOCYTES PERCENT MAN 6 % (4-12); NRBC MANUAL 2 /100WBC (0-0); SEG NEUTROPHILS PERCENT MAN 87 % (46-82)
[2023-10-20 08:43] LABS: WBC CORRECTED 16.9 X10(3) (4.5-12.0)
[2023-10-20 09:28] LABS: BILIRUBIN,URINE NEGATIVE (NEGATIVE); GLUCOSE,URINE NORMAL (NORMAL); KETONES,URINE NEGATIVE (NEGATIVE); LEUKOCYTE ESTERASE,URINE MODERATE (NEGATIVE); NITRITE,URINE NEGATIVE (NEGATIVE); OCCULT BLOOD,URINE NEGATIVE (NEGATIVE); PROTEIN,URINE NEGATIVE (NEGATIVE); UROBILINOGEN,URINE NORMAL (NEGATIVE)
[2023-10-20 09:35] LABS: APPEARANCE,URINE SLIGHTLY CLOUDY (CLEAR); COLOR,URINE YELLOW (YELLOW)
[2023-10-20 09:39] LABS: RBC,URINE 0-5 (0-5); WBC,URINE 0-5 (0-5)
[2023-10-20 09:40] LABS: AMORPHOUS SEDIMENT,URINE MODERATE; BACTERIA,URINE FEW (NS); MUCUS,URINE MODERATE (NS); SQUAMOUS EPITHELIAL CELLS,UR MODERATE (NS,R,O)
[2023-10-20] MEDS: Ketorolac 30 MG/ML SDV IVPUSH ONE (10:14)
[2023-10-20] MEDS: Metoclopramide 10 MG/2 ML SDV IVPUSH ONE (10:15)
[2023-10-20] MEDS: Acetaminophen 500 MG Tab PO ONE (10:20)
[2023-10-20] MEDS ORDERED: D5 1/2 NS w/ 20 mEq/L KCl 1,000 ML IV SCH (10:30)
[2023-10-20] MEDS ORDERED: Polyethylene Glycol 3350 Powder 17 GM Packet PO PRN (11:57)
[2023-10-20] MEDS: Ampicillin/Sulbactam Na 3 GM in Sodium Chloride 0.9% 100 ML IV SCH (12:20)
[2023-10-20] MEDS: Enoxaparin 40 MG/0.4 ML Syringe SUBCUT SCH (12:22)
[2023-10-20] MEDS: Doxycycline 100 MG Tab PO SCH (12:23)
[2023-10-20] MEDS ORDERED: Calcium Carbonate 500 MG Tab.Chew PO PRN (13:02)
[2023-10-20] MEDS ORDERED: Cyclobenzaprine 10 MG Tab PO PRN (13:22)
[2023-10-20] MEDS: traMADol 50 MG Tab PO PRN (15:48)
[2023-10-20] MEDS: Famotidine 20 MG Tab PO SCH (15:49)
[2023-10-20] MEDS: Dicyclomine 10 MG Cap PO SCH (15:49)
[2023-10-20] MEDS: Pantoprazole 40 MG Tab.CR PO SCH (17:36)
[2023-10-20] MEDS: carBAMazepine 100 MG Tab.Chew PO SCH (21:31)
[2023-10-20] MEDS: Gabapentin 300 MG Cap PO SCH (21:31)
[2023-10-20] MEDS: Rosuvastatin 5 MG Tab PO SCH (21:31)
[2023-10-20] MEDS: traZODone 50 MG Tab PO SCH (21:32)
[2023-10-20] MEDS: Metoclopramide 10 MG/2 ML SDV IV PRN (21:32)
[2023-10-20] MEDS: Ketorolac 15 MG/ML SDV IVPUSH ONE (21:41)
[2023-10-21] MEDS: Sodium Chloride 0.9% 10 ML Syringe FLUSH PRN (01:27)
[2023-10-21 06:55] LABS: BASOPHILS ABSOLUTE AUTO 0.1 x10-3/uL (0.0-0.1); BASOPHILS PERCENT AUTO 0.5 % (0.2-1.5); EOSINOPHILS ABSOLUTE AUTO 0.3 x10-3/uL (0.0-0.8); EOSINOPHILS PERCENT AUTO 2.5 % (0.6-8.1); HEMATOCRIT 34.5 % (34.2-48.2); HEMOGLOBIN 11.7 g/dL (11.4-15.5); LYMPHOCYTES ABSOLUTE AUTO 1.1 x10-3/uL (1.0-4.4); LYMPHOCYTES PERCENT AUTO 9.4 % (18.4-52.1); MEAN CORPUSCULAR HGB CONC 33.7 g/dL (31.9-34.8); MEAN CORPUSCULAR VOLUME 91.9 fL (76.7-100.5); MEAN PLATELET VOLUME 8.4 fL (7.1-12.4); MONOCYTES ABSOLUTE AUTO 1.6 x10-3/uL (0.3-1.0); MONOCYTES PERCENT AUTO 12.8 % (4.4-15.7); NEUTROPHILS ABSOLUTE AUTO 9.1 x10-3/uL (1.5-6.3); NEUTROPHILS PERCENT AUTO 74.8 % (30.8-76.2); PLATELET COUNT,PLT 287 x10(3)uL (151-488); RED BLOOD CELL COUNT 3.76 x10(6)uL (3.60-5.20); RED CELL DISTRIBUTION WIDTH 13.8 % (12.3-16.5); WHITE BLOOD CELL COUNT,WBC 12.2 x10-3/uL (3.0-10.3)
[2023-10-21 06:57] LABS: BLOOD UREA NITROGEN,BUN 18 mg/dL (7-18); BUN/CREATININE RATIO 25.7 (9-20); CALCIUM 7.8 mg/dL (8.6-10.2); CARBON DIOXIDE,CO2 27 mmol/L (21-32); CHLORIDE,CL 107 mmol/L (100-110); CREATININE 0.7 mg/dL (0.55-1.02); EST CRCL DRUG DOSING (CG) 66.42 mL/min; ESTIMATED GFR 94 mL/min (>60); GLUCOSE RANDOM 115 mg/dL (80-116); POTASSIUM,K 3.5 mmol/L (3.5-5.3); SODIUM,NA 143 mmol/L (135-145)
[2023-10-21] MEDS: FLUoxetine 20 MG Cap PO SCH (08:38)
[2023-10-21] MEDS: Albuterol 6.7 GM Inhaler INH PRN (14:08)
[2023-10-22] MEDS: Benzonatate 100 MG Cap PO PRN (01:30)
[2023-10-22 07:06] LABS: BLOOD UREA NITROGEN,BUN 12 mg/dL (7-18); CALCIUM 8.2 mg/dL (8.6-10.2); CARBON DIOXIDE,CO2 25 mmol/L (21-32); CHLORIDE,CL 105 mmol/L (100-110); CREATININE 0.5 mg/dL (0.55-1.02); EST CRCL DRUG DOSING (CG) 92.99 mL/min; ESTIMATED GFR 102 mL/min (>60); GLUCOSE RANDOM 118 mg/dL (80-116); POTASSIUM,K 3.7 mmol/L (3.5-5.3); SODIUM,NA 141 mmol/L (135-145)
[2023-10-22 07:07] LABS: WHITE BLOOD CELL COUNT,WBC 14.9 x10-3/uL (3.0-10.3)
[2023-10-22 07:09] LABS: MEAN CORPUSCULAR HEMOGLOBIN 31.6 pg (23.9-33.9); MEAN CORPUSCULAR HGB CONC 34.3 g/dL (31.9-34.8); MEAN CORPUSCULAR VOLUME 92.1 fL (76.7-100.5); MEAN PLATELET VOLUME 9.2 fL (7.1-12.4); PLATELET COUNT,PLT 307 x10(3)uL (151-488); RED BLOOD CELL COUNT 4.12 x10(6)uL (3.60-5.20); RED CELL DISTRIBUTION WIDTH 13.8 % (12.3-16.5)
[2023-10-22 07:32] LABS: EOSINOPHILS PERCENT MAN 2 % (0-5); LYMPHOCYTES PERCENT MAN 9 % (13-37); MONOCYTES PERCENT MAN 10 % (4-12); SEG NEUTROPHILS PERCENT MAN 79 % (46-82)
[2023-10-22] MEDS: Acetaminophen 500 MG Tab PO ONE (11:19)
[2023-10-22] MEDS: Ondansetron 4 MG Tab.DIS PO PRN (12:25)
[2023-10-23 06:52] LABS: BASOPHILS PERCENT AUTO 0.4 % (0.2-1.5); EOSINOPHILS ABSOLUTE AUTO 0.3 x10-3/uL (0.0-0.8); EOSINOPHILS PERCENT AUTO 3.3 % (0.6-8.1); HEMATOCRIT 35.5 % (34.2-48.2); HEMOGLOBIN 11.9 g/dL (11.4-15.5); LYMPHOCYTES PERCENT AUTO 9.8 % (18.4-52.1); MEAN CORPUSCULAR HEMOGLOBIN 31.1 pg (23.9-33.9); MEAN CORPUSCULAR HGB CONC 33.5 g/dL (31.9-34.8); MEAN CORPUSCULAR VOLUME 92.8 fL (76.7-100.5); MEAN PLATELET VOLUME 8.8 fL (7.1-12.4); MONOCYTES ABSOLUTE AUTO 1.1 x10-3/uL (0.3-1.0); MONOCYTES PERCENT AUTO 11.4 % (4.4-15.7); NEUTROPHILS ABSOLUTE AUTO 7.3 x10-3/uL (1.5-6.3); NEUTROPHILS PERCENT AUTO 75.1 % (30.8-76.2); PLATELET COUNT,PLT 321 x10(3)uL (151-488); RED BLOOD CELL COUNT 3.82 x10(6)uL (3.60-5.20); RED CELL DISTRIBUTION WIDTH 13.5 % (12.3-16.5); WHITE BLOOD CELL COUNT,WBC 9.7 x10-3/uL (3.0-10.3)
[2023-10-23 07:03] LABS: BLOOD UREA NITROGEN,BUN 15 mg/dL (7-18); CALCIUM 8.2 mg/dL (8.6-10.2); CARBON DIOXIDE,CO2 26 mmol/L (21-32); CHLORIDE,CL 105 mmol/L (100-110); CREATININE 0.6 mg/dL (0.55-1.02); EST CRCL DRUG DOSING (CG) 77.49 mL/min; ESTIMATED GFR 98 mL/min (>60); GLUCOSE RANDOM 117 mg/dL (80-116); POTASSIUM,K 3.1 mmol/L (3.5-5.3); SODIUM,NA 141 mmol/L (135-145)
[2023-10-23] MEDS: Atropine/Diphenoxylate 0.025-2.5 MG Tab PO PRN (08:40)
[2023-10-23] MEDS: Potassium Chloride 20 MEQ in Premix Bag 1 BAG IV SCH (13:17)
[2023-10-23] MEDS: Ketorolac 15 MG/ML SDV IVPUSH ONE (13:18)
[2023-10-23] MEDS ORDERED: Acetaminophen 500 MG Tab PO PRN ×2 (15:34→15:53)
[2023-10-23] MEDS: Potassium Chloride 20 MEQ in Premix Bag 1 BAG IV ONE (19:32)
[2023-10-24 06:49] LABS: BASOPHILS PERCENT AUTO 0.5 % (0.2-1.5); EOSINOPHILS ABSOLUTE AUTO 0.4 x10-3/uL (0.0-0.8); HEMATOCRIT 36.7 % (34.2-48.2); HEMOGLOBIN 12.4 g/dL (11.4-15.5); LYMPHOCYTES ABSOLUTE AUTO 1.1 x10-3/uL (1.0-4.4); LYMPHOCYTES PERCENT AUTO 12.2 % (18.4-52.1); MEAN CORPUSCULAR HEMOGLOBIN 31.1 pg (23.9-33.9); MEAN CORPUSCULAR HGB CONC 33.8 g/dL (31.9-34.8); MEAN CORPUSCULAR VOLUME 91.9 fL (76.7-100.5); MEAN PLATELET VOLUME 8.6 fL (7.1-12.4); MONOCYTES PERCENT AUTO 11.2 % (4.4-15.7); NEUTROPHILS ABSOLUTE AUTO 6.2 x10-3/uL (1.5-6.3); NEUTROPHILS PERCENT AUTO 71.1 % (30.8-76.2); PLATELET COUNT,PLT 331 x10(3)uL (151-488); RED BLOOD CELL COUNT 3.99 x10(6)uL (3.60-5.20); RED CELL DISTRIBUTION WIDTH 13.7 % (12.3-16.5); WHITE BLOOD CELL COUNT,WBC 8.7 x10-3/uL (3.0-10.3)
[2023-10-24 06:52] LABS: BLOOD UREA NITROGEN,BUN 14 mg/dL (7-18); CALCIUM 8.2 mg/dL (8.6-10.2); CARBON DIOXIDE,CO2 26 mmol/L (21-32); CHLORIDE,CL 106 mmol/L (100-110); CREATININE 0.5 mg/dL (0.55-1.02); EST CRCL DRUG DOSING (CG) 92.99 mL/min; ESTIMATED GFR 102 mL/min (>60); GLUCOSE RANDOM 109 mg/dL (80-116); POTASSIUM,K 3.7 mmol/L (3.5-5.3); SODIUM,NA 139 mmol/L (135-145)
[2023-10-24] MEDS: Ketorolac 15 MG/ML SDV IVPUSH STA (13:33)
[2023-10-25 06:38] LABS: BASOPHILS ABSOLUTE AUTO 0.1 x10-3/uL (0.0-0.1); BASOPHILS PERCENT AUTO 0.6 % (0.2-1.5); EOSINOPHILS ABSOLUTE AUTO 0.4 x10-3/uL (0.0-0.8); EOSINOPHILS PERCENT AUTO 3.7 % (0.6-8.1); HEMATOCRIT 37.8 % (34.2-48.2); HEMOGLOBIN 12.7 g/dL (11.4-15.5); LYMPHOCYTES ABSOLUTE AUTO 1.3 x10-3/uL (1.0-4.4); LYMPHOCYTES PERCENT AUTO 12.7 % (18.4-52.1); MEAN CORPUSCULAR HGB CONC 33.6 g/dL (31.9-34.8); MEAN CORPUSCULAR VOLUME 92.2 fL (76.7-100.5); MEAN PLATELET VOLUME 8.6 fL (7.1-12.4); MONOCYTES ABSOLUTE AUTO 1.2 x10-3/uL (0.3-1.0); MONOCYTES PERCENT AUTO 12.3 % (4.4-15.7); NEUTROPHILS ABSOLUTE AUTO 7.1 x10-3/uL (1.5-6.3); NEUTROPHILS PERCENT AUTO 70.7 % (30.8-76.2); PLATELET COUNT,PLT 353 x10(3)uL (151-488); RED CELL DISTRIBUTION WIDTH 13.6 % (12.3-16.5); WHITE BLOOD CELL COUNT,WBC 10.1 x10-3/uL (3.0-10.3)
[2023-10-25 06:42] LABS: BLOOD UREA NITROGEN,BUN 17 mg/dL (7-18); BUN/CREATININE RATIO 28.3 (9-20); CALCIUM 8.3 mg/dL (8.6-10.2); CARBON DIOXIDE,CO2 27 mmol/L (21-32); CHLORIDE,CL 105 mmol/L (100-110); CREATININE 0.6 mg/dL (0.55-1.02); EST CRCL DRUG DOSING (CG) 77.49 mL/min; ESTIMATED GFR 98 mL/min (>60); GLUCOSE RANDOM 103 mg/dL (80-116); POTASSIUM,K 3.8 mmol/L (3.5-5.3); SODIUM,NA 139 mmol/L (135-145)
[2023-10-25] MEDS: Ketorolac 15 MG/ML SDV IVPUSH ONE (09:07)
[2023-10-25 14:24] VITALS: BP 151/54; PULSE 90
== END 2023-10-25 14:00 | disposition home or self-care (01) | DRG 193 ==
LOC: FB.ED 06:54 → FB.MS 11:42
PROVIDERS: ADMIT Family Medicine; ATTEND Internal Medicine
DX: R53.1 Weakness (principal); J18.9 Pneumonia, unspecified organism; R79.82 Elevated C-reactive protein (CRP); J96.01 Acute respiratory failure with hypoxia; J44.0 Chronic obstructive pulmonary disease with (acute) lower respiratory infection; D72.829 Elevated white blood cell count, unspecified; E78.00 Pure hypercholesterolemia, unspecified; I25.2 Old myocardial infarction; I10 Essential (primary) hypertension; K21.9 Gastro-esophageal reflux disease without esophagitis; Z91.048 Other nonmedicinal substance allergy status; M19.90 Unspecified osteoarthritis, unspecified site; G89.29 Other chronic pain; M54.9 Dorsalgia, unspecified; F41.0 Panic disorder [episodic paroxysmal anxiety]; F32.A Depression, unspecified; E86.0 Dehydration; E88.09 Other disorders of plasma-protein metabolism, not elsewhere classified; E87.6 Hypokalemia; G43.711 Chronic migraine without aura, intractable, with status migrainosus; Z88.6 Allergy status to analgesic agent; Z88.8 Allergy status to other drugs, medicaments and biological substances; Z79.52 Long term (current) use of systemic steroids; Z79.899 Other long term (current) drug therapy; Z90.710 Acquired absence of both cervix and uterus; Z96.651 Presence of right artificial knee joint; Z98.890 Other specified postprocedural states; Z90.721 Acquired absence of ovaries, unilateral; Z90.89 Acquired absence of other organs; Z87.891 Personal history of nicotine dependence
CPT/HCPCS: 36415; 70450; 71045; 74176; 80048; 80053; 81001; 83605; 85025; 85610; 86140; 87040; 94150; 96361; 96374; 96375; 97110-GP; 97161-GP; 97165-GO; 97530-GO; 99222; 99232; 99238; 99285; 99285-25; A0425; A0428; A9270-GY; J0295; J1650; J1885; J2765; J3480; J3490; J7030; Q0162; U0002

== ENCOUNTER 2024-08-02 01:40 | Emergency (ER) | payer MEDICARE ==
[2024-08-02] MEDS ORDERED: Sodium Chloride 0.9% 10 ML Syringe FLUSH PRN (01:43)
[2024-08-02] MEDS ORDERED: fentaNYL 100 MCG/2 ML SDV IVPUSH PRN (01:44)
[2024-08-02] MEDS ORDERED: Ondansetron 4 MG/2 ML SDV IVPUSH PRN (01:44)
[2024-08-02] MEDS ORDERED: HYDROmorphone 2 MG/ML SDV IV ONE (03:35)
[2024-08-02 05:37] LABS: A/G RATIO 0.9; ALBUMIN 3.3 g/dL (3.2-4.6); ALKALINE PHOSPHATASE 110 IU/L (56-112); BILIRUBIN TOTAL 0.2 mg/dL (0.1-1.3); BLOOD UREA NITROGEN,BUN 19 mg/dL (7-18); BUN/CREATININE RATIO 21.1 (9-20); CALCIUM 8.5 mg/dL (8.6-10.2); CARBON DIOXIDE,CO2 27 mmol/L (21-32); CHLORIDE,CL 102 mmol/L (100-110); CREATININE 0.9 mg/dL (0.55-1.02); ESTIMATED GFR 69 mL/min (>60); GLUCOSE RANDOM 106 mg/dL (80-116); POTASSIUM,K 3.9 mmol/L (3.5-5.3); PROTEIN TOTAL,TP 6.9 g/dL (6.0-8.0); SODIUM,NA 143 mmol/L (135-145)
[2024-08-02 05:38] LABS: ALANINE AMINOTRANSFERASE,ALT 21 U/L (12-36); ASPARTATE AMNIOTRANSFERASE,AST 16 IU/L (5-25)
[2024-08-02 05:39] LABS: BASOPHILS PERCENT AUTO 0.4 % (0.2-1.5); EOSINOPHILS PERCENT AUTO 4.3 % (0.6-8.1); HEMATOCRIT 38.3 % (34.2-48.2); HEMOGLOBIN 12.3 g/dL (11.4-15.5); LYMPHOCYTES PERCENT AUTO 18.2 % (18.4-52.1); MEAN CORPUSCULAR HEMOGLOBIN 27.9 pg (23.9-33.9); MEAN CORPUSCULAR HGB CONC 32.2 g/dL (31.9-34.8); MEAN CORPUSCULAR VOLUME 86.4 fL (76.7-100.5); MEAN PLATELET VOLUME 8.3 fL (7.1-12.4); MONOCYTES PERCENT AUTO 9.1 % (4.4-15.7); NEUTROPHILS PERCENT AUTO 68.1 % (30.8-76.2); PLATELET COUNT,PLT 311 x10(3)uL (151-488); RED BLOOD CELL COUNT 4.43 x10(6)uL (3.60-5.20); WHITE BLOOD CELL COUNT,WBC 8.6 x10-3/uL (3.0-10.3)
[2024-08-02 05:40] LABS: EOSINOPHILS ABSOLUTE AUTO 0.4 x10-3/uL (0.0-0.8); LYMPHOCYTES ABSOLUTE AUTO 1.6 x10-3/uL (1.0-4.4); MONOCYTES ABSOLUTE AUTO 0.8 x10-3/uL (0.3-1.0); NEUTROPHILS ABSOLUTE AUTO 5.9 x10-3/uL (1.5-6.3); RED CELL DISTRIBUTION WIDTH 16.7 % (12.3-16.5)
[2024-08-02] MEDS: Metoclopramide 10 MG/2 ML SDV IVPUSH ONE (05:45)
[2024-08-02] MEDS: Dexamethasone 4 MG/ML SDV IVPUSH ONE (05:46)
[2024-08-02] MEDS: fentaNYL 100 MCG/2 ML SDV IVPUSH ONE (05:46)
[2024-08-02] MEDS: HYDROmorphone 2 MG/ML SDV ONE (07:00)
[2024-08-02] MEDS: Ketorolac 30 MG/ML SDV IVPUSH ONE ×2 (07:00→08:41)
[2024-08-02] MEDS: Sodium Chloride 0.9% 1,000 ML IV SCH (08:41)
[2024-08-02] MEDS: Prochlorperazine 10 MG/2 ML SDV IVPUSH ONE (08:41)
[2024-08-02 10:00] LABS: BLOOD UREA NITROGEN,BUN 20 mg/dL (7-18); BUN/CREATININE RATIO 22.2 (9-20); CALCIUM 9.1 mg/dL (8.6-10.2); CARBON DIOXIDE,CO2 30 mmol/L (21-32); CHLORIDE,CL 102 mmol/L (100-110); CREATININE 0.9 mg/dL (0.55-1.02); ESTIMATED GFR 69 mL/min (>60); GLUCOSE RANDOM 127 mg/dL (80-116); POTASSIUM,K 4.7 mmol/L (3.5-5.3); SODIUM,NA 139 mmol/L (135-145)
[2024-08-02 10:38] VITALS: BP 110/51; PULSE 75
[2024-08-02] MEDS: diphenhydrAMINE 50 MG/ML SDV IVPUSH ONE (10:52)
[2024-08-02] MEDS: methylPREDNISolone Sodium Succinate 125 MG/2 ML SDV IVPUSH ONE (11:03)
== END 2024-08-02 11:50 ==
LOC: FB.ED 01:40
DX: G43.711 Chronic migraine without aura, intractable, with status migrainosus (principal); I10 Essential (primary) hypertension; E78.00 Pure hypercholesterolemia, unspecified; J44.9 Chronic obstructive pulmonary disease, unspecified; K21.9 Gastro-esophageal reflux disease without esophagitis; Z90.49 Acquired absence of other specified parts of digestive tract; Z90.710 Acquired absence of both cervix and uterus; Z88.6 Allergy status to analgesic agent; Z88.8 Allergy status to other drugs, medicaments and biological substances; Z91.048 Other nonmedicinal substance allergy status; Z91.041 Radiographic dye allergy status; Z79.51 Long term (current) use of inhaled steroids; Z79.899 Other long term (current) drug therapy
CPT/HCPCS: 36415; 70450; 80048; 80053; 84484; 85025; 85651; 86140; 93010; 96361; 96374; 96375; 99284; 99285; J0780; J1100; J1171; J1200; J1885; J2405; J2765; J2919; J3010; J7030